=== PATIENT | male | born 1940 | race Caucasian/White ===

== ENCOUNTER 2018-03-10 13:15 | Observation (INO) | payer MEDICARE ==
[~2018-03-10] VITALS: Ht 177.8 cm; Wt 81.6 kg
[~2018-03-10 13:15] MED LIST: AMIODARONE HCL200 MG PO; ASPIR 8181 MG PO; ASPIRIN81 MG PO; CARVEDILOL3.125 MG PO; CO Q 10 PO; DILTIAZEM 24HR240 M2 PO; ELIQUIS PO; HYDROCHLOROTH12.5 MG PO; METOPROLOL TART50 MG PO; PANTOPRAZOLE SO40 MG PO; PREDNISONE10 MG PO; PROAIR HFA INH8.5 GM INH; RAMIPRIL10 MG PO; RAMIPRIL5 MG PO; SIMVASTATIN10 MG PO; SPIRIVA18 MCG INH; SYMBICORT 16010.2 GM INH; TAZTIA XT240 MG PO; VITAMIN B1 PO
--- OUTSIDE RECORDS SUMMARY | 2018-03-10 13:18 | XMS REPORT ---
[facility] Address Unknown Phone Unavailable Care Team Providers Care Aircraft Maintenance Instructor Name Role Phone Unavailable Unavailable Problems This patient has no known problems. Allergies, Adverse Reactions, Alerts This patient has no known allergies or adverse reactions. Medications This patient has no known medications. Results Test Description Test Time Test Comments Text Results Atomic Results Result Comments CT, CHEST, WITHOUT CONTRAST 2017-08-14 12:27:00 FINAL REPORT TECHNIQUE: CT scan of the chest WITHOUT intravenous contrast. Dose modulation, iterative reconstruction, and/or weight-based adjustment of the mA/ kV was utilized to reduce the radiation dose to as low as reasonably achievable. INDICATION: 76-year-old man with lung nodule. COMPARISON: Chest CTs 07/26/2016, 08/11/2015, and 06/30/2014. FINDINGS: ABSENCE OF INTRAVENOUS CONTRAST DECREASES SENSITIVITY FOR DETECTION OF FOCAL LESIONS AND VASCULAR PATHOLOGY. LINES/TUBES: None. LUNGS AND AIRWAYS: Prior right upper lobectomy. Central airways are patent. Extensive centrilobular and paraseptal emphysematous changes. No new pulmonary lesion. Unchanged scarring in the right middle lobes, as well as in both lung bases. PLEURA: No pleural effusion or pneumothorax. Unchanged calcified and noncalcified pleural plaques. HEART AND MEDIASTINUM: The visualized thyroid gland is normal. No significant mediastinal , hilar, or axillary lymphadenopathy. The heart and pericardium are within normal limits. Atherosclerotic calcifications in the thoracic aorta and coronary arteries. SOFT TISSUES AND BONES: Degenerative changes of the visualized spine. Unchanged chronic posttraumatic deformities of right-sided ribs. UPPER ABDOMEN: Unchanged subcentimeter hypodensities in the visualized liver, too small to characterize. No adrenal nodules. IMPRESSION:No suspicious abnormalities in the chest. Extensive emphysema. Signed: Jose Ashley MDReport Verified Date/Time: 08/14/2017 12:27:25 Reading Location: [facility] C0[facility] CT Body Reading Room
--- OUTSIDE RECORDS SUMMARY | 2018-03-10 13:18 | XMS REPORT | Clinical Summary ---
Author Author [facility] Address Unknown Phone Unavailable Care Team Providers Care Annealer Helper Name Role Phone PCP Unavailable Allergies No Known Allergies Current Medications Not on file Active Problems Not on file Encounters Date Type Specialty Care Team Description 08/14/2017 Procedure visit Radiology Tobias Smallwood Lung nodule MD Angelica 08/11/2017 Outside Orders Central Scheduling Tobias Smallwood Lung nodule (Primary Dx) MD Angelica after 03/09/2017 Social History Tobacco Use Types Packs/Day Years Used Date Never Assessed Sex Assigned at Date Recorded Not on file Last Filed Vital Signs Not on file Plan of Treatment Health Maintenance Due Date Last Done Comments INFLUENZA VACCINE 08/13/2018 Results * CT chest without IV contrast (08/14/2017 10:15 AM) Specimen Performing Laboratory [employer] Narrative FINAL REPORT TECHNIQUE: CT scan of the chest WITHOUT intravenous contrast. Dose modulation, iterative reconstruction, and/or weight-based adjustment of the mA/kV was utilized to reduce the radiation dose [...] visualized thyroid gland is normal. No significant mediastinal, hilar, or axillary lymphadenopathy. The heart and pericardium are within normal limits. Atherosclerotic calcifications in the thoracic aorta and coronary arteries. SOFT TISSUES AND BONES: Degenerative changes of the visualized spine. Unchanged chronic posttraumatic deformities of right-sided ribs. UPPER ABDOMEN: Unchanged subcentimeter hypodensities in the visualized liver, too small to characterize. No adrenal nodules. IMPRESSION: No suspicious abnormalities in the chest. Extensive emphysema. Signed: Evy Ashley MD Report Verified Date/Time:08/14/2017 12:27:25 Reading Location: [facility] C013Y CT Body Reading Room Procedure Note Interface, External Ris In - 08/14/2017 12:29 PM CDT FINAL REPORT TECHNIQUE: CT scan of the chest WITHOUT intravenous contrast. Dose modulation, iterative reconstruction, and/or weight-based adjustment of the mA/kV was utilized to reduce the radiation dose [...] visualized thyroid gland is normal. No significant mediastinal, hilar, or axillary lymphadenopathy. The heart and pericardium are within normal limits. Atherosclerotic calcifications in the thoracic aorta and coronary arteries. SOFT TISSUES AND BONES: Degenerative changes of the visualized spine. Unchanged chronic posttraumatic deformities of right-sided ribs. UPPER ABDOMEN: Unchanged subcentimeter hypodensities in the visualized liver, too small to characterize. No adrenal nodules. IMPRESSION: No suspicious abnormalities in the chest. Extensive emphysema. Signed: Evy Ashley MD Report Verified Date/Time: 08/14/2017 12:27:25 Reading Location: [facility] B1 C013Y CT Body Reading Room after 03/09/2017
--- OUTSIDE RECORDS SUMMARY | 2018-03-10 13:18 | XMS REPORT | Clinical Summary ---
Author Author [facility] Address Unknown Phone Unavailable Care Team Providers Care Screw Machine Operator Name Role Phone Vera You MD PCP Allergies No Known Allergies Current Medications Prescription Sig. Disp. Refills Start End Date Status Date PROAIR RESPICLICK 90 INL TWO PUFFS PO Q 4 H 6 07/22/20 Active mcg/actuation aerosol PRN 16 powdr breath activated pantoprazole (PROTONIX) TK 1 T PO BID 5 07/03/20 Active 40 MG EC tablet 16 SPIRIVA WITH HANDIHALER 07/22/20 Active 18 mcg per inhalation 16 capsule aspirin (ECOTRIN) 81 MG Take 81 mg by mouth Active enteric coated tablet daily. SYMBICORT 160-4.5 Inhale 2 puffs 2 (two) 11 01/19/20 Active mcg/actuation inhaler times a day. 17 amIODarone (PACERONE) 200 Take 1 tablet by mouth 3 04/14/20 Active MG tablet daily. 17 metoprolol succinate XL Take 1 tablet by mouth 2 3 04/14/20 Active (TOPROL-XL) 50 mg 24 hr (two) times a day. 17 tablet hydroCHLOROthiazide Take 1 tablet (12.5 mg 30 tablet 11 05/11/20 Active (HYDRODIURIL) 12.5 MG total) by mouth daily. 17 18 tablet ELIQUIS 2.5 mg tablet TK 1 T PO BID 3 11/20/19 Active 18 furosemide (LASIX) 40 mg Take 1 every other daily 16 tablet 3 Active tabletIndications: Pedal orally 18 edema, Left leg cellulitis, Shortness of breath ramipril (ALTACE) 10 MG TAKE 1 CAPSULE BY MOUTH 90 capsule 3 02/12/20 Active capsuleIndications: DAILY 18 Essential hypertension carvedilol (COREG) 3.125 Take 1 tablet (3.125 mg 180 tablet 3 04/19/20 Discontin MG tabletIndications: total) by mouth 2 (two) 17 17 ued Essential hypertension times a day with meals. diltiazem CD (CardIZEM Take 1 capsule (240 mg 90 capsule 3 02/07/20 04/19/20 Discontin CD) 240 MG 24 hr total) by mouth daily. 17 17 ued capsuleIndications: Essential hypertension ramipril (ALTACE) 10 MG Take 1 capsule (10 mg 90 capsule 3 02/07/20 02/11/20 Discontin capsuleIndications: total) by mouth daily. 17 18 ued Essential hypertension simvastatin (ZOCOR) 10 MG Take 1 tablet (10 mg 90 tablet 3 02/07/20 04/19/20 Discontin tabletIndications: Pure total) by mouth nightly. 17 17 ued hypercholesterolemia furosemide (LASIX) 20 mg Take 1 tablet (20 mg 14 tablet 0 04/05/20 04/19/20 Discontin tabletIndications: total) by mouth daily for 17 17 ued Bilateral edema of lower 14 days. extremity potassium chloride Take 1 tablet (10 mEq 14 tablet 0 04/05/20 Discontin (K-DUR) 10 MEQ CR total) by mouth daily for 17 17 ued tabletIndications: 14 days. Bilateral edema of lower extremity doxycycline (VIBRA-TABS) Take 1 tablet (100 mg 14 tablet 0 04/05/20 04/19/20 Discontin 100 MG tabletIndications: total) by mouth daily for 17 17 ued Bilateral edema of lower 14 days. extremity metOLazone (ZAROXOLYN) Take 1 tablet by mouth 2 1 04/07/20 05/10/20 Discontin 2.5 MG tablet (two) times a week. 17 17 ued ELIQUIS 5 mg tablet Take 1 tablet by mouth 04/17/20 12/12/19 Discontin daily. 17 18 ued losartan (COZAAR) 100 MG Take 1 tablet by mouth 3 04/14/20 05/25/20 Discontin tablet daily. 17 17 ued predniSONE (DELTASONE) 10 0 05/01/20 12/27/19 Discontin mg tablet 17 18 ued doxycycline (VIBRAMYCIN) Take 1 capsule (100 mg 10 capsule 0 06/24/20 06/24/20 Discontin 100 MG capsule total) by mouth daily for 17 17 ued 10 days. doxycycline (VIBRAMYCIN) Take 1 capsule (100 mg 10 capsule 0 06/24/20 07/04/20 100 MG capsule total) by mouth daily for 17 17 10 days. predniSONE (DELTASONE) 20 0 11/11/20 12/27/19 Discontin mg tablet 17 18 ued furosemide (LASIX) 40 mg Take 1 tablet (40 mg 30 tablet 0 12/12/19 02/04/20 Discontin tabletIndications: Pedal total) by mouth daily. 18 18 ued edema, Left leg cellulitis, Shortness of breath potassium chloride Take 1 tablet (10 mEq 30 tablet 0 12/12/19 Discontin (K-DUR,KLOR-CON) 10 MEQ total) by mouth daily. 18 18 ued CR tabletIndications: Pedal edema, Left leg cellulitis, Shortness of breath doxycycline (VIBRAMYCIN) Take 1 capsule (100 mg 28 capsule 1 12/12/19 12/27/19 Discontin 100 MG total) by mouth 2 (two) 18 18 ued capsuleIndications: Left times a day for 14 days. leg cellulitis Active Problems Problem Noted Date Chronic obstructive pulmonary disease with acute exacerbation 12/12/2017 Overview: Dr Salinas Shortness of breath 04/17/2017 Overview: 04/[address] Wilder Anemia, normocytic normochromic 02/08/2017 Overview: 01/2017 iron studies wnl Imbalance 09/07/2016 Overview: Right cerebellar cva, right thalamic cva chronic 08/2016 GERD (gastroesophageal reflux disease) 09/06/2016 Malignant neoplasm of upper lobe of right lung 09/06/2016 Overview: Removed nonsmall cell cancer 01/2010 taken out for cure. Essential hypertension 09/06/2016 Chronic renal insufficiency, stage I 09/06/2016 Overview: 08/2016 creatinine 1.5, 06/2014 was 1.6 Encounters Date Type Specialty Care Team Description 03/10/2018 Telephone Internal Medicine Whitney You MD 03/09/2018 Office Visit Internal Medicine Whitney You MD Essential hypertension (Primary Dx); Chronic seasonal allergic rhinitis due to pollen; Chronic renal impairment, stage 3 (moderate); Anemia, normocytic normochromic; Pedal edema 02/10/2018 Refill Internal Medicine Whitney You MD Essential hypertension 02/10/2018 Refill Internal Medicine Whitney You MD Essential hypertension 02/03/2018 Orders Only Internal Medicine Whitney You MD Pedal edema; Left leg cellulitis; Shortness of breath 02/01/2018 Office Visit Internal Medicine Whitney You MD Chronic renal impairment, stage 3 (moderate) (Primary Dx); Anemia, normocytic normochromic; Other constipation; Pedal edema 12/27/2017 Office Visit Internal Medicine Whitney You MD Anemia, normocytic normochromic (Primary Dx); Renal insufficiency; Pedal edema; Bilateral lower leg cellulitis; Essential hypertension 12/13/2017 Telephone Internal Medicine Whitney You MD 12/12/2017 Office Visit Internal Medicine Whitney You MD Pedal edema (Primary Dx); Left leg cellulitis; Shortness of breath; Essential hypertension 11/14/2017 Telephone Internal Medicine Sara Silva ND 09/06/2017 Telephone Internal Medicine Whitney You MD 08/15/2017 Office Visit Internal Medicine Whitney You MD Renal insufficiency (Primary Dx); Leg swelling; Shortness of breath; Essential hypertension 06/24/2017 Orders Only Internal Whitney Potts MD 06/24/2017 Orders Only Internal Whitney Potts MD 05/25/2017 Office Visit Internal Whitney Potts MD CRI (chronic renal insufficiency), stage 2 (mild) (Primary Dx); Essential hypertension; Anemia, normocytic normochromic 05/25/2017 Telephone Internal Whitney Potts MD 05/11/2017 Telephone Internal Whitney Potts MD 05/10/2017 Office Visit Internal Medicine Whitney You MD CRI (chronic renal insufficiency), stage 3 (moderate) (Primary Dx); Essential hypertension; Leg edema, left; Anemia in other chronic diseases classified elsewhere; Papule of skin 04/25/2017 Telephone Internal Whitney Potts MD 04/24/2017 Telephone Internal Medicine Whitney You MD 04/19/2017 Office Visit Internal Medicine Whitney You MD Bilateral edema of lower extremity (Primary Dx); Essential hypertension; Chronic renal insufficiency, stage I; Seasonal allergic rhinitis due to pollen 04/06/2017 Telephone Internal Medicine Whitney You MD Pedal edema (Primary Dx) 04/05/2017 Office Visit Internal Medicine Whitney You MD Heart palpitations (Primary Dx); Bilateral edema of lower extremity; Shortness of breath; Cellulitis of leg, left; Anemia, normocytic normochromic; CRI (chronic renal insufficiency), stage 2 (mild) after 03/09/2017 Family History Medical History Relation Name Comments Heart disease Brother Hyperlipidemia Brother Hypertension Brother Heart disease Father Hypertension Father No Known Problems Maternal Grandfather No Known Problems Maternal Grandmother Cancer Mother Colon No Known Problems Paternal Grandfather No Known Problems Paternal Grandmother Hodgkin's lymphoma Sister No Known Problems Sister Relation Name Status Comments Brother Alive Father Maternal Grandfather Maternal Grandmother Mother Paternal Grandfather Paternal Grandmother Sister Sister Alive Sister Alive Social History Tobacco Use Types Packs/Day Years Used Date Heavy Tobacco Smoker Cigarettes 0.5 Smokeless Tobacco: Never Used Tobacco Cessation: Ready to Quit: No; Counseling Given: Yes Comments: not ready to quit Alcohol Use Drinks/Week oz/Week Comments No Sex Assigned at Date Recorded Not on file Last Filed Vital Signs Vital Sign Reading Time Taken Blood Pressure 110/50 03/09/2018 10:33 AM CDT Pulse 70 03/09/2018 9:52 AM CDT Temperature 36.4 C (97.6 F) 12/12/2017 11:44 AM 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 Respiratory Rate 20 12/12/2017 11:44 AM 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 Oxygen Saturation 96% 03/09/2018 9:52 AM CDT Inhaled Oxygen - - Concentration Weight 80.7 kg (178 lb) 03/09/2018 9:52 AM CDT Height 177.8 cm (5' 10") 03/09/2018 9:52 AM CDT Body Mass Index 25.54 03/09/2018 9:52 AM CDT Plan of Treatment Health Maintenance Due Date Last Done Comments SHINGRIX VACCINE (#1) 1990 ZOSTER VACCINE 2000 PNEUMOCOCCAL 2005 POLYSACCHARIDE VACCINE AGE 65 AND OVER PNEUMOCOCCAL-13 2005 INFLUENZA VACCINE 06/13/2018 Results * CBC with platelet and differential (03/09/2018 10:47 AM) Only the most recent of 5 results within the time period is included. Component Value Ref Range WBC 5.8 3.8 - 10.8 Thousand/uL RBC 3.25 (L) 4.20 - 5.80 Million/uL HGB 7.3 (L) 13.2 - 17.1 g/dL HCT 25.1 (L) 38.5 - 50.0 % MCV 77.2 (L) 80.0 - 100.0 fL MCH 22.5 (L) 27.0 - 33.0 pg MCHC 29.1 (L) 32.0 - 36.0 g/dL RDW 14.7 11.0 - 15.0 % Platelet count 288 140 - 400 Thousand/uL MPV 10.6 7.5 - 12.5 fL Neutrophils, absolute 3,457 1,500 - 7,800 cells/uL Lymphocytes, absolute 1,206 850 - 3,900 cells/uL Monocytes, absolute 818 200 - 950 cells/uL Eosinophils, absolute 278 15 - 500 cells/uL Basophils, absolute 41 0 - 200 cells/uL Neutrophils 59.6 % Lymphocytes 20.8 % Monocytes 14.1 % Eosinophils 4.8 % Basophils + RC 0.7 % Specimen Performing Laboratory [facility] * Basic metabolic panel (03/09/2018 10:47 AM) Only the most recent of 7 results within the time period is included. Component Value Ref Range Glucose 89 65 - 99 mg/dL Comment: Fasting reference interval BUN, whole blood 53 (H) 7 - 25 mg/dL Creatinine 3.04 (H) 0.70 - 1.18 mg/dL Comment: For patients >49 years of age, the reference limit for Creatinine is approximately 13% higher for people identified as -Lebanese. EGFR Non-Afr. Lebanese 19 (L) > OR=60 mL/min/1.73m2 EGFR 22 (L) > OR=60 mL/min/1.73m2 BUN/creatinine ratio 17 6 - 22 (calc) Sodium 140 135 - 146 mmol/L Potassium 4.8 3.5 - 5.3 mmol/L Chloride 98 98 - 110 mmol/L CO2 34 (H) 20 - 31 mmol/L Calcium 9.3 8.6 - 10.3 mg/dL Specimen Performing Laboratory [facility] * IRON, TIBC AND FERRITIN PANEL (12/12/2017 12:35 PM) Component Value Ref Range Iron level 54 50 - 180 mcg/dL Iron binding capacity 279 250 - 425 mcg/dL (calc) Iron saturation 19 15 - 60 % (calc) Ferritin level 66 20 - 380 ng/mL Specimen Performing Laboratory [facility] Narrative FASTING:NO FASTING: NO * Manual differential (12/12/2017 12:35 PM) Component Value Ref Range Neutrophils, absolute 7,673 1,500 - 7,800 cells/uL Bands absolute 865 (H) 0 - 750 cells/uL Metamyelocytes absolute 93 (H) 0 cells/uL Myelocytes absolute count 93 (H) 0 cells/uL Promyelocytes absolute 195 (H) 0 cells/uL count Lymphocytes, absolute 186 (L) 850 - 3,900 cells/uL Monocytes, absolute 195 (L) 200 - 950 cells/uL Eosinophils, absolute 0 (L) 15 - 500 cells/uL Basophils, absolute 0 0 - 200 cells/uL Neutrophils 82.5 % Band neutrophils 9.3 % Metamyelocytes 1.0 (H) % Myelocytes 1.0 (H) % Promyelocytes 2.1 (H) % Lymphocytes 2.0 % Monocytes 2.1 % Eosinophils 0 % Basophils + RC 0 % Note: Comment: Although an "automated CBC" was ordered, our instrumentation detected an abnormality on your patient's specimen requiring us to perform a manual review. Specimen Performing Laboratory [facility] Narrative FASTING:NO FASTING: NO * B natriuretic peptide (12/12/2017 12:35 PM) Only the most recent of 2 results within the time period is included. Component Value Ref Range BNP 238 (H) <100 pg/mL Comment: BNP levels increase with age in the general population with the highest values seen in individuals greater than 75 years of age. Reference: J. Am. Audie. Cardiol. 2002; 40:976-982. Specimen Performing Laboratory [facility] Narrative FASTING:NO FASTING: NO * Comprehensive metabolic panel (12/12/2017 12:35 PM) Component Value Ref Range Glucose 149 (H) 65 - 99 mg/dL Comment: Fasting reference interval For someone without known diabetes, a glucose value >125 mg/dL indicates that they may have diabetes and this should be confirmed with a follow-up test. BUN, whole blood 41 (H) 7 - 25 mg/dL Creatinine 1.78 (H) 0.70 - 1.18 mg/dL Comment: For patients >49 years of age, the reference limit for Creatinine is approximately 13% higher for people identified as -Lebanese. EGFR Non-Afr. Lebanese 36 (L) > OR=60 mL/min/1.73m2 EGFR 42 (L) > OR=60 mL/min/1.73m2 BUN/creatinine ratio 23 (H) 6 - 22 (calc) Sodium 141 135 - 146 mmol/L Potassium 4.7 3.5 - 5.3 mmol/L Chloride 98 98 - 110 mmol/L CO2 36 (H) 20 - 31 mmol/L Calcium 9.0 8.6 - 10.3 mg/dL Protein 6.1 6.1 - 8.1 g/dL Albumin, S 3.7 3.6 - 5.1 g/dL Globulin, total 2.4 1.9 - 3.7 g/dL (calc) Albumin/globulin ratio 1.5 1.0 - 2.5 (calc) Total bilirubin 0.4 0.2 - 1.2 mg/dL Alkaline phosphatase 106 40 - 115 U/L AST 13 10 - 35 U/L ALT 13 9 - 46 U/L Specimen Performing Laboratory [facility] Narrative FASTING:NO FASTING: NO * D-dimer (04/05/2017 2:45 PM) Component Value Ref Range D-dimer 1.38 (H) <0.50 mcg/mL FEU Comment: The D-Dimer test is used frequently to exclude an acute PE or DVT. In patients with a low to moderate clinical risk assessment and a D-Dimer result <0.50 mcg/mL FEU, the likelihood of a PE or DVT is very low. However, a thromboembolic event should not be excluded solely on the basis of the D-Dimer level. Increased levels of D-Dimer are associated with a PE, DVT, DIC, malignancies, inflammation, sepsis, surgery, trauma, , and advancing patient age. [Carlyle 2006 11:295(2):199-207] For additional information, please refer to: http://education.wireWAX/faq/SJF970 (This link is being provided for informational/ educational purposes only) Specimen Performing Laboratory [facility] * ECG 12 lead (04/05/2017 2:03 PM) Component Value Ref Range Ventricular rate 86 Atrial rate 86 UT interval 154 QRSD interval 140 QT interval 414 QTC interval 495 P axis 1 34 QRS axis 1 43 T wave axis 59 EKG impression Sinus rhythm with premature supraventricular complexes and with frequent premature ventricular complexes-Right bundle branch block-Septal infarct , age undetermined-Abnormal ECG-- Specimen Performing Laboratory [facility] [address] [place] [address] after 03/09/2017 Insurance Payer Benefit Subscriber ID Type Phone Address Plan / Group MEDICARE MEDICARE xxxxxxxxxx Medicare [place], [place] PART A AND B AARP AARP xxxxxxxxxxx Commercial SUPPLEMENT
[2018-03-10] MEDS ORDERED: ASPIRIN 81 MG CHEW TAB PO ONE (13:30)
[2018-03-10] MEDS ORDERED: ASPIRIN 81 MG CHEW TAB PO PRN (13:45)
[2018-03-10] MEDS ORDERED: FUROSEMIDE40 MG PO (14:31)
[2018-03-10] MEDS ORDERED: SPIRIVA18 MCG INH (14:31)
[2018-03-10 15:11] LABS: BASOPHILS # (AUTO) 0.1 (0.0-0.1); BASOPHILS % 0.9 % (0.0-1.0); EOSINOPHILS # (AUTO) 0.4 (0.0-0.4); EOSINOPHILS % 6.9 % (0.0-6.0); HEMATOCRIT 24.9 % (38.2-49.6); LYMPHOCYTES # (AUTO) 1.3 (1.0-3.2); LYMPHOCYTES % 23.3 % (18.0-39.1); MEAN CORPUSCULAR HEMOGLOBIN 23.6 pg (28-32); MEAN CORPUSCULAR HGB CONC 29.7 g/dL (31-35); MEAN CORPUSCULAR VOLUME 79.6 fL (81-99); MONOCYTES # (AUTO) 0.7 (0.2-0.8); MONOCYTES % 11.8 % (4.4-11.3); NEUTROPHILS # (AUTO) 3.1 (2.1-6.9); NEUTROPHILS % 56.7 % (38.7-80.0); PLATELET COUNT 284 x10e3/uL (140-360); RED BLOOD COUNT 3.13 x10e6/uL (4.3-5.7); RED CELL DISTRIBUTION WIDTH 15.6 % (11.7-14.4)
[2018-03-10 15:14] LABS: INR 1.09; PROTHROMBIN TIME 13.3 seconds (11.9-14.5)
[2018-03-10 15:15] LABS: PARTIAL THROMBOPLASTIN TIME 27.3 seconds (23.8-35.5)
[2018-03-10 15:19] LABS: HEMOGLOBIN 7.4 g/dL (14.0-18.0)
[2018-03-10 15:21] LABS: ALBUMIN 3.5 g/dL (3.5-5.0); ANION GAP 17.2 mmol/L (8-16); CALCIUM 9.1 mg/dL (8.4-10.2); CREATININE, SERUM 2.8 mg/dL (0.72-1.25); POTASSIUM 5.2 mmol/L (3.5-5.1)
[2018-03-10 15:28] LABS: CREATINE KINASE MB 4.4 ng/mL (0-5.0)
[2018-03-10] MEDS ORDERED: ALBUTEROL SULF 0.083% NEB SOLN 3 ML NEB NEB STA (16:33)
[2018-03-10] MEDS ORDERED: FUROSEMIDE INJ 10 MG/ML 2 ML VIAL IV SCH (16:45)
[2018-03-10] MEDS ORDERED: SODIUM CHLORIDE 0.9% 250ML 250 ML IV ONE (16:45)
[2018-03-10] MEDS ORDERED: IPRATROPIUM BROMIDE 0.02% 2.5 ML NEB NEB ONE (16:45)
[2018-03-10] MEDS ORDERED: ALBUTEROL SULF 0.083% NEB SOLN 3 ML NEB NEB ONE (17:15)
--- NOTE | 2018-03-10 17:19 | Diagnostic Imaging Report ---
EXAMINATION: Chest, CHEST SINGLE (PORTABLE) INDICATION: Chest pain COMPARISON: Chest 2 views 08/27/2014 FINDINGS: LINES: None. Heart: Normal cardiac silhouette. Vascular: The pulmonary vasculature is within normal limits. Atherosclerotic calcifications of the aortic arch. Mediastinum: Density is present in the right hilum. Lungs: No parenchymal mass. No focal consolidation. Pleura: No pleural effusion. No pneumothorax. Bones: No acute osseous abnormality. Degenerative changes of the thoracic spine. Soft tissues: Normal. Impression: Density in the right hilum may represent lymphadenopathy. CT of the chest with contrast may provide additional information for further characterization. Signed by: Dr. Jose Guadalupe Candelario M.D. on 03/10/2018 5:16 PM
[2018-03-10] MEDS ORDERED: ONDANSETRON HCL 4 MG ORAL DISINTEGRATING TAB PO PRN (18:00)
[2018-03-10] MEDS ORDERED: MORPHINE SULFATE 2 MG/ML SYR IV PRN (18:00)
[2018-03-10] MEDS ORDERED: ACETAMINOPHEN 325 MG TAB PO PRN (18:00)
[2018-03-10 18:26] LABS: CLARITY,URINE CLEAR (CLEAR); COLOR,URINE YELLOW (YELLOW); KETONES,URINE NEGATIVE (NEGATIVE); LEUKOCYTE ESTERASE ,URINE NEGATIVE (NEGATIVE); NITRITE,URINE NEGATIVE (NEGATIVE); PROTEIN,URINE DIPSTICK NEGATIVE (NEGATIVE)
[2018-03-10 18:27] LABS: BACTERIA,URINE FEW /HPF; BILIRUBIN,URINE NEGATIVE (NEGATIVE); EPITHELIAL CELLS,URINE FEW /LPF; URINE UROBILINOGEN 0.2 mg/dL (0.2 - 1); WBC,URINE (MAN) 0-5 /HPF (0-5)
--- OUTSIDE RECORDS SUMMARY | 2018-03-10 18:40 | XMS REPORT | Clinical Summary ---
Author Author [facility]SS[email or web address] Address Unknown Phone Unavailable Care Team Providers Care Hardware Developer Name Role Phone PCP Unavailable Allergies No [...] contrast (08/14/2017 10:15 AM) Specimen Performing Laboratory [employer] Narrative FINAL REPORT TECHNIQUE: CT scan of [...] MD Report Verified Date/Time:08/14/2017 12:27:25 Reading Location: [facility] C013Y CT Body Reading Room Procedure Note [...] Report Verified Date/Time: 08/14/2017 12:27:25 Reading Location: [facility] B1 C013Y CT Body Reading Room after 03/09/2017
--- OUTSIDE RECORDS SUMMARY | 2018-03-10 18:40 | XMS REPORT | Clinical Summary ---
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 EGFR Non-Afr. Kosovan 19 (L) > OR=60 mL/min/1.73m2 EGFR 22 [...] approximately 13% higher for people identified as -Kosovan. EGFR Non-Afr. Kosovan 36 (L) > OR=60 mL/min/1.73m2 EGFR 42 [...] 11:295(2):199-207] For additional information, please refer to: http://education.OctaneNation/faq/MLA204 (This link is being provided for informational/ educational purposes only) Specimen Performing Laboratory [facility] * ECG 12 lead (04/05/2017 2:03 PM) Component Value Ref Range Ventricular rate 86 Atrial rate 86 SD interval 154 QRSD interval 140 QT interval 414 QTC interval 495 P axis 1 34 QRS axis 1 43 T wave axis 59 EKG impression Sinus rhythm with premature supraventricular complexes and with frequent premature ventricular complexes-Right bundle branch block-Septal infarct , age undetermined-Abnormal ECG-- Specimen Performing Laboratory [facility] [address] [place] [address] after 03/09/2017 Insurance Payer Benefit Subscriber ID Type Phone Address Plan / Group MEDICARE MEDICARE xxxxxxxxxx Medicare [place], [place] PART A [place] B AARP AARP xxxxxxxxxxx Commercial SUPPLEMENT
[2018-03-10] MEDS: ALBUTEROL SULF 0.083% NEB SOLN 3 ML NEB NEB SCH ×2 (20:15→22:50)
[2018-03-10] MEDS: IPRATROPIUM BROMIDE 0.02% 2.5 ML NEB NEB SCH ×2 (20:15→22:50)
[2018-03-10 21:10] VITALS: BP 200/80
[2018-03-10 22:39] VITALS: BP 157/69
[2018-03-10 22:50] VITALS: BP 146/63
[2018-03-10 22:58] VITALS: BP 146/63
[2018-03-11] VITALS: BP 157/70
[2018-03-11] MEDS: IPRATROPIUM BROMIDE 0.02% 2.5 ML NEB NEB SCH ×4 (03:00→15:00)
[2018-03-11] MEDS: ALBUTEROL SULF 0.083% NEB SOLN 3 ML NEB NEB SCH ×4 (03:00→15:00)
[2018-03-11 05:00] VITALS: BP 154/77
[2018-03-11] MEDS ORDERED: TIOTROPIUM 18 MCG INH POWDER INH SCH (06:00)
[2018-03-11 08:11] VITALS: BP 144/67
[2018-03-11] MEDS ORDERED: FUROSEMIDE 40 MG TAB PO SCH (09:00)
[2018-03-11] MEDS ORDERED: ASPIRIN 81 MG CHEW TAB PO SCH (09:00)
[2018-03-11] MEDS: BUDESONIDE/FORMOTEROL 160/4.5MCG INHALER INH SCH ×2 (09:00→16:09)
[2018-03-11] MEDS ORDERED: AMIODARONE HCL 200 MG TAB PO SCH (09:00)
[2018-03-11] MEDS: METOPROLOL TARTRATE 50 MG TAB PO SCH ×2 (09:22→16:09)
[2018-03-11 10:22] LABS: BASOPHILS % 0.8 % (0.0-1.0); EOSINOPHILS # (AUTO) 0.3 (0.0-0.4); EOSINOPHILS % 5.4 % (0.0-6.0); HEMATOCRIT 27.1 % (38.2-49.6); HEMOGLOBIN 8.3 g/dL (14.0-18.0); LYMPHOCYTES # (AUTO) 0.8 (1.0-3.2); LYMPHOCYTES % 15.4 % (18.0-39.1); MEAN CORPUSCULAR HEMOGLOBIN 24.6 pg (28-32); MEAN CORPUSCULAR HGB CONC 30.6 g/dL (31-35); MEAN CORPUSCULAR VOLUME 80.4 fL (81-99); MONOCYTES # (AUTO) 0.6 (0.2-0.8); MONOCYTES % 11.2 % (4.4-11.3); NEUTROPHILS # (AUTO) 3.5 (2.1-6.9); NEUTROPHILS % 66.8 % (38.7-80.0); PLATELET COUNT 238 x10e3/uL (140-360); RED BLOOD COUNT 3.37 x10e6/uL (4.3-5.7); RED CELL DISTRIBUTION WIDTH 15.1 % (11.7-14.4)
[2018-03-11 10:56] LABS: ALBUMIN 3.2 g/dL (3.5-5.0); ALBUMIN/GLOBULIN RATIO 1.1 (0.8-2.0); ANION GAP 13.1 mmol/L (8-16); CREATININE, SERUM 2.21 mg/dL (0.72-1.25); POTASSIUM 4.1 mmol/L (3.5-5.1)
[2018-03-11 11:02] LABS: CREATINE KINASE MB 4.4 ng/mL (0-5.0)
[2018-03-11] MEDS ORDERED: SODIUM CHLORIDE 0.9% 250ML 250 ML IV ONE (12:00)
--- NOTE | 2018-03-11 12:23 | History and Physical ---
ADDENDUM: The patient also has atrial fibrillation and he is on Eliquis and amiodarone. Job#: [id number] ARLYN
--- NOTE | 2018-03-11 15:59 | History and Physical ---
PRIMARY CARE PHYSICIAN: Dr. Arriola. CHIEF COMPLAINT: Low blood count. HISTORY OF PRESENT ILLNESS: A 77-year-old man with a history of right lung cancer in 2010, status post partial right lobectomy, now developing anemia, and sent to the hospital by his doctor. Here he was found to have a hemoglobin of 7.4. He has been started on 2 units of packed red blood cells transfusion. The patient also has a history of congestive heart failure, started on Lasix. He has been told in the past that he has some renal dysfunction and recommended to see a post graduate intern, but did not. Now, his GFR is 22. He is admitted for further evaluation and management. PAST MEDICAL HISTORY: Right lung cancer in 2011, status post partial lobectomy, TIA, hypertension, , peripheral edema, congestive heart failure, acute kidney injury/chronic kidney disease stage unknown and COPD. PAST SURGICAL HISTORY: Partial right lobectomy in 2010. ALLERGIES: PER ELECTRONIC MEDICAL RECORDS. FAMILY, SOCIAL HISTORY: The patient is . He has no children. No alcohol or illicits. He quit cigarettes 4 months ago. He was smoking 1/4 pack a day at that time. MEDICATIONS: Per electronic medical records. REVIEW OF SYSTEMS: Denies any dizziness, chest pain. PHYSICAL EXAMINATION VITAL SIGNS: Reviewed. GENERAL APPEARANCE: A tired-appearing man resting in the bed. HEENT: Anicteric. Pupils responsive to light. No oral lesions. CARDIOVASCULAR: Normal S1 and S2. Regular rate and rhythm. No murmurs audible. No chest wall tenderness. LUNGS: Scattered wheeze and reduced breath sounds throughout. ABDOMEN: Soft and nontender. EXTREMITIES: There is no edema or calf tenderness. NEUROLOGIC: Alert and oriented x3. Moving all extremities. SKIN: Dry. PSYCHIATRIC: Flat affect. LABS: Reviewed. MEDICATIONS: Reviewed. ASSESSMENT AND PLAN: A 77-year-old man. 1. Microcytic anemia. Two units of packed red blood cells transfused. We will follow up hemoglobin and hematocrit. 2. Acute kidney injury/chronic kidney disease stage 4, possibly, unknown. He has been recommended to see a post graduate intern in the past, but has refused. The patient is now requesting to go home. He has agreed to follow up with nephrology as an outpatient. I will discontinue his Lasix at this time. 3. Hyperkalemia. We will retest and reassess. 4. Hypertension. Continue home medication. 5. Right hilar abnormality in the setting of history of right lung cancer in 2011. He states he gets surveillance CAT scans every year. I recommended for him to have a CAT scan this week as the patient has refused to stay in the hospital and wants to go home. 6. Prophylaxis: Use SCDs and proton pump inhibitor. DISPOSITION: Possibly home today, as the patient has agreed to follow up with a CAT scan later this week and follow up with nephrology, Dr. Suero, as an outpatient. Will recheck his potassium now. Will recheck his renal function prior to discharge and make a final determination on further discussion with the patient. Job#: [id number] GH
[2018-03-11] MEDS ORDERED: PANTOPRAZOLE SOD 40 MG TABEC PO SCH (16:30)
[2018-03-11] MEDS ORDERED: FUROSEMIDE INJ 10 MG/ML 2 ML VIAL IV ONE (17:00)
[2018-03-11 18:38] LABS: HEMATOCRIT 31.8 % (38.2-49.6); HEMOGLOBIN 9.8 g/dL (14.0-18.0)
[2018-03-11 19:09] LABS: ANION GAP 16.1 mmol/L (8-16); CALCIUM 9.2 mg/dL (8.4-10.2); CREATININE, SERUM 2.22 mg/dL (0.72-1.25); POTASSIUM 4.1 mmol/L (3.5-5.1)
[2018-03-11 19:15] VITALS: BP 153/70
[2018-03-12] MEDS ORDERED: SIMVASTATIN 20 MG TAB PO SCH (21:00)
== END 2018-03-11 20:15 | disposition home or self-care (01) ==
LOC: ER 13:15 → ERHOLD 18:38 → IMCU 20:38
PROVIDERS: ADMIT Internal Medicine; ATTEND Internal Medicine
PROC: 30233N1 Transfusion of Nonautologous Red Blood Cells into Peripheral Vein, Percutaneous Approach (ICD-10-PCS; principal; 2018-03-10)
DX: D50.8 Other iron deficiency anemias (principal); N17.9 Acute kidney failure, unspecified; E87.5 Hyperkalemia; I10 Essential (primary) hypertension; Z85.118 Personal history of other malignant neoplasm of bronchus and lung; Z87.891 Personal history of nicotine dependence; N18.9 Chronic kidney disease, unspecified; I50.9 Heart failure, unspecified; I48.91 Unspecified atrial fibrillation; Z79.01 Long term (current) use of anticoagulants
CPT/HCPCS: 36430; P9016; 36415; 71045; 80048; 80053; 81001; 82550; 82553; 84484; 85014; 85018; 85025; 85610; 85730; 86850; 86900; 86920; 93005; 94640; 99284; G0378; J1940; J7050

== ENCOUNTER 2018-10-27 17:04 | Observation (INO) | payer MEDICARE ==
[~2018-10-27] VITALS: Ht 179.1 cm; Wt 85.0 kg
[~2018-10-27 17:04] MED LIST changes: +FUROSEMIDE40 MG PO
--- OUTSIDE RECORDS SUMMARY | 2018-10-27 17:09 | XMS REPORT ---
Author Author Meghan Christianson Organization [employer] Address Unknown Phone Unavailable Care Team Providers Care Regional Clinical Research Associate Name Role Phone Meghan Christianson CP Unavailable Encounters Encounter Location Date Unknown Meghan [place] Sep 03, 2014 Unknown Meghan [place] Sep 05, 2014 [place] Meghan [place] Sep 05, 2014 Problems Problem Type Condition ICD-9 Code Onset Dates Condition Status Problem Pure hypercholesterolemia 272.0 Active Problem Unspecified transient cerebral ischemia 435.9 Active Problem Benign hypertensive heart disease without heart failure 402.10 Active Problem 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 frequency:every day Aug 14, 2014 Exercise: no. Aug 14, 2014 Smoking: yes. Are you a: Current smoker Aug 14, 2014 Alcohol: no. None Aug 14, 2014 Summary Purpose eClinicalWorks Submission
--- OUTSIDE RECORDS SUMMARY | 2018-10-27 17:09 | XMS REPORT | Clinical Summary ---
Author Author [employer] [facility] Organization [facility] Address Unknown Phone Unavailable Care Team Providers Care Perforator Typist Name Role Phone Whitney You MD PCP Allergies No Known Allergies Medications End Date Status Medication Sig Dispensed Refills Start Date Active PROAIR RESPICLICK 90 INL TWO PUFFS 6 mcg/actuation aerosol PO Q 4 H PRN 6 powdr breath activated Active pantoprazole (PROTONIX) TK 1 T PO BID 5 40 MG EC tablet 6 Active SPIRIVA WITH HANDIHALER 0 18 mcg per inhalation 6 capsule Active aspirin (ECOTRIN) 81 MG Take 81 mg by 0 enteric coated tablet mouth daily. Active SYMBICORT 160-4.5 Inhale 2 11 mcg/actuation inhaler puffs 2 (two) 7 times a day. Active amIODarone (PACERONE) 200 Take 1 tablet 3 MG tablet by mouth 7 daily. Active metoprolol succinate XL Take 1 tablet 3 (TOPROL-XL) 50 mg 24 hr by mouth 2 7 tablet (two) times a day. Active ELIQUIS 2.5 mg tablet TK 1 T PO BID 3 8 Active ramipril (ALTACE) 10 MG TAKE 1 90 capsule 3 capsuleIndications: CAPSULE BY 8 Essential hypertension MOUTH DAILY Active furosemide (LASIX) 40 mg Take 1 every 16 tablet 3 tabletIndications: Pedal other daily 8 edema, Left leg orally cellulitis, Shortness of breath Active AURYXIA 210 mg iron TK 1 T PO 5 tablet TID 8 02/10/2018 Discontinued ramipril (ALTACE) 10 MG Take 1 90 capsule 3 capsuleIndications: capsule (10 7 Essential hypertension mg total) by mouth daily. 12/12/2017 Discontinued ELIQUIS 5 mg tablet Take 1 tablet 0 by mouth 7 daily. 12/27/2017 Discontinued predniSONE (DELTASONE) 10 0 mg tablet 7 05/11/2018 hydroCHLOROthiazide Take 1 tablet 30 tablet 11 (HYDRODIURIL) 12.5 MG (12.5 mg 7 tablet total) by mouth daily. 12/27/2017 Discontinued predniSONE (DELTASONE) 20 0 mg tablet 7 02/03/2018 Discontinued furosemide (LASIX) 40 mg Take 1 tablet 30 tablet 0 tabletIndications: Pedal (40 mg total) 8 edema, Left leg by mouth cellulitis, Shortness of daily. breath 02/03/2018 Discontinued potassium chloride Take 1 tablet 30 tablet 0 (K-DUR,KLOR-CON) 10 MEQ (10 mEq 8 CR tabletIndications: total) by Pedal edema, Left leg mouth daily. cellulitis, Shortness of breath 12/27/2017 Discontinued doxycycline (VIBRAMYCIN) Take 1 28 capsule 1 100 MG capsule (100 8 capsuleIndications: Left mg total) by leg cellulitis mouth 2 (two) times a day for 14 days. 06/03/2018 Discontinued furosemide (LASIX) 40 mg Take 1 every 16 tablet 3 tabletIndications: Pedal other daily 8 edema, Left leg orally cellulitis, Shortness of breath 06/08/2018 Discontinued furosemide (LASIX) 40 mg TAKE 1 TABLET 16 tablet 0 tabletIndications: Pedal BY MOUTH 8 edema, Left leg EVERY OTHER cellulitis, Shortness of DAY breath 07/24/2018 doxycycline (VIBRAMYCIN) Take 1 14 capsule 0 100 MG capsule capsule (100 8 mg total) by mouth 2 (two) times a day for 7 days. Active Problems Problem Noted Date Chronic obstructive [...] taken out for cure. Essential hypertension 09/06/2016 CRI (chronic renal insufficiency), stage 4 (severe) 09/06/2016 Overview: 08/2016 creatinine 1.5, 06/2014 was 1.6 03/2018 Dr Hernandez Encounters Care Team Description Date Type Specialty Whitney You MD CRI (chronic renal insufficiency), stage 4 (severe) (HCC) (Primary Dx); Chronic obstructive pulmonary disease with acute exacerbation (HCC); Essential hypertension; Anemia, normocytic normochromic; Diarrhea, unspecified type 10/25/2018 Office Visit Internal Medicine Whitney You MD 09/26/2018 Patient Quality Outreach Joan Ferrer 09/26/2018 Patient Quality Outreach Whitney You MD 07/17/2018 Orders Only Internal Medicine Whitney You MD Essential hypertension (Primary Dx); CRI (chronic renal insufficiency), stage 4 (severe); Pedal edema; CRI (chronic renal insufficiency), stage 2 (mild); Anemia, normocytic normochromic 07/13/2018 Office Visit Internal Medicine Whitney You MD Needs flu shot (Primary Dx); Essential hypertension; CRI (chronic renal insufficiency), stage 4 (severe); Anemia, normocytic normochromic 06/08/2018 Office Visit Internal Whitney Potts MD 06/04/2018 Telephone Internal Medicine Whitney You MD Pedal edema; Left leg cellulitis; Shortness of breath 06/03/2018 Refill Internal Medicine Whitney You MD Pedal edema; Left leg cellulitis; Shortness of breath 06/03/2018 Refill Internal Whitney Potts MD 03/18/2018 Telephone Internal Whitney Potts MD 03/16/2018 Telephone Internal Whitney Potts MD 03/10/2018 Telephone Internal Medicine Whitney You MD Essential hypertension (Primary Dx); Chronic seasonal allergic rhinitis due to pollen; Chronic renal impairment, stage 3 (moderate); Anemia, normocytic normochromic; Pedal edema 03/09/2018 Office Visit Internal Medicine Whitney You MD Essential hypertension 02/10/2018 Refill Internal Medicine Whitney You MD Essential hypertension 02/10/2018 Refill Internal Medicine Whitney You MD Pedal edema; Left leg cellulitis; Shortness of breath 02/03/2018 Orders Only Internal Medicine Whitney You MD Chronic renal impairment, stage 3 (moderate) (Primary Dx); Anemia, normocytic normochromic; Other constipation; Pedal edema 02/01/2018 Office Visit Internal Medicine Whitney You MD Anemia, normocytic normochromic (Primary Dx); Renal insufficiency; Pedal edema; Bilateral lower leg cellulitis; Essential hypertension 12/27/2017 Office Visit Internal Medicine Whitney You MD 12/13/2017 Telephone Internal Medicine Whitney You MD Pedal edema (Primary Dx); Left leg cellulitis; Shortness of breath; Essential hypertension 12/12/2017 Office Visit Internal Medicine Sara Silva [place] 11/14/2017 Telephone Internal Medicine after 10/26/2017 Immunizations Name Dates Previously Given Next Due FLUZONE HIGH-DOSE PF 06/08/2017 (Deferred: Patient Refused) Family History Medical History Relation Name Comments [...] Sister Sister Alive Sister Alive Social History Date Tobacco Use Types Packs/Day Years Used Current Every Day Smoker Cigarettes 0.25 Smokeless Tobacco: Never Used Tobacco Cessation: Ready to Quit: No; Counseling Given: Yes Comments: not ready to quit Alcohol Use Drinks/Week oz/Week Comments No Sex Assigned at Date Recorded Not on file Industry Job Start Date Occupation Not on file Not on file Not on file Travel End Travel History Travel Start No recent travel history available. Last Filed Vital Signs Time Taken Vital Sign Reading 10/25/2018 11:45 AM [facility] Blood Pressure 144/71 10/25/2018 11:45 AM [facility] Pulse 77 10/25/2018 11:45 AM [facility] Temperature 36.9 C (98.5 F) 12/12/2017 11:44 AM [facility] Respiratory Rate 20 10/25/2018 11:45 AM [facility] Oxygen Saturation 92% - Inhaled Oxygen - Concentration 07/13/2018 9:58 AM CDT Weight 89.4 kg (197 lb) 10/25/2018 11:45 AM [facility] Height 177.8 cm (5' 10") 07/13/2018 9:58 AM CDT Body Mass Index 28.27 Plan of Treatment Care Team Description Date Type Specialty Whitney You MD [address] [facility] [address] [facility] [place] [address] 02/07/2019 Office Visit Internal Medicine Health Maintenance Due Date Last Done Comments SHINGLES VACCINES (1 of 1990 2) PNEUMOCOCCAL 2005 POLYSACCHARIDE VACCINE AGE 65 AND OVER PNEUMOCOCCAL-13 2005 INFLUENZA VACCINE 06/13/2018 Procedures Comments Procedure Name Priority Date/Time Associated Diagnosis COMPREHENSIVE METABOLIC Routine 10/25/2018 CRI (chronic renal PANEL 12:27 PM [facility] insufficiency), stage 4 (severe) (HCC) Essential hypertension CBC WITH PLATELET AND Routine 10/25/2018 Anemia, normocytic DIFFERENTIAL 12:27 PM [facility] normochromic CBC WITH PLATELET AND Routine 07/13/2018 Anemia, normocytic DIFFERENTIAL 10:36 AM CDT normochromic BASIC METABOLIC PANEL Routine 07/13/2018 CRI (chronic renal 10:36 AM CDT insufficiency), stage 2 (mild) BASIC METABOLIC PANEL Routine 06/08/2018 Essential hypertension 12:03 PM CDT CRI (chronic renal insufficiency), stage 4 (severe) CBC WITH PLATELET AND Routine 06/08/2018 Anemia, normocytic DIFFERENTIAL 12:03 PM CDT normochromic BASIC METABOLIC PANEL Routine 03/09/2018 Essential hypertension 10:47 AM CDT Chronic renal impairment, stage 3 (moderate) CBC WITH PLATELET AND Routine 03/09/2018 Anemia, normocytic DIFFERENTIAL 10:47 AM CDT normochromic BASIC METABOLIC PANEL Routine 12/27/2017 Renal insufficiency 1:59 PM [facility] CBC WITH PLATELET AND Routine 12/27/2017 Anemia, normocytic DIFFERENTIAL 1:59 PM [facility] normochromic IRON, TIBC AND FERRITIN Routine 12/12/2017 PANEL 12:35 PM [facility] MANUAL DIFFERENTIAL Routine 12/12/2017 12:35 PM [facility] COMPREHENSIVE METABOLIC Routine 12/12/2017 Pedal edema PANEL 12:35 PM [facility] Essential hypertension B NATRIURETIC PEPTIDE Routine 12/12/2017 Shortness of breath 12:35 PM [facility] CBC WITH PLATELET AND Routine 12/12/2017 Left leg cellulitis DIFFERENTIAL 12:35 PM [facility] Shortness of breath after 10/26/2017 Results * CBC with platelet and differential (10/25/2018 12:27 PM [facility]) Only the most recent of 6 results within the time period is included. WBC 8.3 3.8 - 10.8 Thousand/uL [facility] [place] RBC 3.03 (L) 4.20 - 5.80 Million/uL [facility] [place] HGB 7.5 (L) 13.2 - 17.1 g/dL [facility] [place] HCT 25.3 (L) 38.5 - 50.0 % [facility] [place] MCV 83.5 80.0 - 100.0 fL [facility] [place] MCH 24.8 (L) 27.0 - 33.0 pg [facility] [place] MCHC 29.6 (L) 32.0 - 36.0 g/dL [facility] [place] RDW 14.4 11.0 - 15.0 % [facility] [place] Platelet count 340 140 - 400 Thousand/uL [facility] [place] MPV 10.3 7.5 - 12.5 fL [facility] [place] Neutrophils, absolute 7,146 1,500 - 7,800 cells/uL [facility] [place] Lymphocytes, absolute 905 850 - 3,900 cells/uL [facility] [place] Monocytes, absolute 224 200 - 950 cells/uL [facility] [place] Eosinophils, absolute 8 (L) 15 - 500 cells/uL [facility] [place] Basophils, absolute 17 0 - 200 cells/uL [facility] Neutrophils 86.1 % [facility] Lymphocytes 10.9 % [facility] Monocytes 2.7 % [facility] Eosinophils 0.1 % [facility] Basophils + RC 0.2 % [facility] Specimen Blood Resulting Agency Comment Performing Organization Information: Site ID: [id number] Name: [facility] Address: [address] [place] [id number] Director: Marilu Snider Performing Organization Address City/State/Zipcode Phone Number LASHONDA [facility] [place] [address] [place] [address] * Comprehensive metabolic panel (10/25/2018 12:27 PM [facility]) Only the most recent of 2 results within the time period is included. Glucose 126 (H) 65 - 99 mg/dL [facility] [facility] Comment: [place] Fasting reference interval For someone without known diabetes, a glucose value >125 mg/dL indicates that they may have diabetes and this should be confirmed with a follow-up test. BUN, whole blood 43 (H) 7 - 25 mg/dL [facility] Creatinine 1.81 (H) 0.70 - 1.18 mg/dL [facility] [facility] Comment: [place] For patients >49 years of age, the reference limit for Creatinine is approximately 13% higher for people identified as -Scottish. EGFR Non-Afr. [place] 35 (L) > OR=60 mL/min/1.73m2 [employer] [facility] EGFR 41 (L) > OR=60 mL/min/1.73m2 [employer] [facility] BUN/creatinine ratio 24 (H) 6 - 22 (calc) [facility] [place] Sodium 142 135 - 146 mmol/L [facility] [place] Potassium 5.0 3.5 - 5.3 mmol/L [facility] [place] Chloride 101 98 - 110 mmol/L [facility] [place] CO2 34 (H) 20 - 32 mmol/L [facility] [place] Calcium 8.7 8.6 - 10.3 mg/dL [facility] [place] Protein 5.9 (L) 6.1 - 8.1 g/dL [facility] [place] Albumin, S 3.8 3.6 - 5.1 g/dL [facility] [place] Globulin, total 2.1 1.9 - 3.7 g/dL (calc) [facility] [place] Albumin/globulin ratio 1.8 1.0 - 2.5 (calc) [facility] Total bilirubin 0.2 0.2 - 1.2 mg/dL [facility] Alkaline phosphatase 67 40 - 115 U/L [facility] AST 14 10 - 35 U/L [facility] [place] ALT 12 9 - 46 U/L [facility] [place] Specimen Blood Resulting Agency Comment Performing Organization Information: Site ID: [id number] Name: [facility] Lab Address: [address] [place] [id number] Director: Marilu Snider Performing Organization Address City/State/Zipcode Phone Number [facility] [address] [place] [phone] * Basic metabolic panel (07/13/2018 10:36 AM CDT) Only the most recent of 4 results within the time period is included. Glucose 115 (H) 65 - 99 mg/dL [employer] [facility] Comment: [place] Fasting reference interval For someone without known diabetes, a glucose value between 100 and 125 mg/dL is consistent with prediabetes and should be confirmed with a follow-up test. BUN, whole blood 35 (H) 7 - 25 mg/dL [facility] Creatinine 1.46 (H) 0.70 - 1.18 mg/dL [employer] [facility] Comment: [place] For patients >49 years of age, the reference limit for Creatinine is approximately 13% higher for people identified as -Scottish. EGFR Non-Afr. [place] 46 (L) > OR=60 mL/min/1.73m2 [facility] EGFR 53 (L) > OR=60 mL/min/1.73m2 [facility] BUN/creatinine ratio 24 (H) 6 - 22 (calc) [facility] Sodium 142 135 - 146 mmol/L [facility] [place] Potassium 5.0 3.5 - 5.3 mmol/L [employer] [facility] [place] Chloride 98 98 - 110 mmol/L [employer] [place] CO2 37 (H) 20 - 32 mmol/L [employer] [facility] [place] Calcium 9.4 8.6 - 10.3 mg/dL [facility] [place] Specimen Blood Resulting Agency Comment Performing Organization Information: Site ID: [id number] Name: [facility] Address: [address] [place] [phone] Director: Marilu Snider Performing Organization Address City/State/[facility] Phone Number [employer] [place] [address] [place] [phone] * IRON, TIBC AND FERRITIN PANEL (12/12/2017 12:35 PM [facility]) Iron level 54 50 - 180 mcg/dL [facility] Iron binding capacity 279 250 - 425 mcg/dL (calc) [facility] [place] Iron saturation 19 15 - 60 % (calc) [facility] [place] Ferritin level 66 20 - 380 ng/mL [facility] [place] Narrative Performed At FASTING:NO [facility] FASTING: NO Resulting Agency Comment Performing Organization Information: Site ID: [id number] Name: [facility] Address: [address] [place] [id number] Director: Marilu Snider MD Performing Organization Address [facility] Centercone Phone Number [employer] [place] [address] [place] [phone] * Manual differential (12/12/2017 12:35 PM [facility]) Neutrophils, absolute 7,673 1,500 - 7,800 cells/uL [facility] [place] Bands absolute 865 (H) 0 - 750 cells/uL [facility] [place] Metamyelocytes absolute 93 (H) 0 cells/uL [facility] [place] Myelocytes absolute count 93 (H) 0 cells/uL [facility] [place] Promyelocytes absolute 195 (H) 0 cells/uL [facility] Lymphocytes, absolute 186 (L) 850 - 3,900 cells/uL [facility] [place] Monocytes, absolute 195 (L) 200 - 950 cells/uL [facility] [place] Eosinophils, absolute 0 (L) 15 - 500 cells/uL [facility] [place] Basophils, absolute 0 0 - 200 cells/uL [facility] [place] Neutrophils 82.5 % [facility] [place] Band neutrophils 9.3 % [facility] [place] Metamyelocytes 1.0 (H) % [facility] [place] Myelocytes 1.0 (H) % [facility] [place] Promyelocytes 2.1 (H) % [facility] [place] Lymphocytes 2.0 % [facility] [place] Monocytes 2.1 % [facility] [place] Eosinophils 0 % [facility] [place] Basophils + RC 0 % [facility] [place] Note: Comment: [facility] Although an "automated CBC" [place] was ordered, our instrumentation detected an abnormality on your patient's specimen requiring us to perform a manual review. Narrative Performed At FASTING:NO [facility] FASTING: NO Resulting Agency Comment Performing Organization Information: Site ID: [id number] Name: [facility] Address: [address] [place] [phone] Director: Marilu Snider MD Performing Organization Address City/[facility] Centercode Phone Number [employer] [place] [address] [place] [address] * B natriuretic peptide (12/12/2017 12:35 PM [facility]) BNP 238 (H) <100 pg/mL [employer] [facility] Comment: [place] BNP levels increase with age in the general population with the highest values seen in individuals greater than 75 years of age. Reference: J. Am. Audie. Cardiol. 2002; 40:976-982. Specimen Blood Narrative Performed At FASTING:NO [facility] FASTING: NO Resulting Agency Comment Performing Organization Information: Site ID: [id number] Name: [facility] Address: [address] [place] [phone] Director: Marilu Snider MD Performing Organization Address [facility] Centercode Phone Number [employer] [address] [address] after 10/26/2017 Insurance Payer Benefit Subscriber ID Type Phone Address Plan / Group MEDICARE MEDICARE xxxxxxxxxxx Medicare [place], [place] PART A AND B AARP AARP xxxxxxxxxxx Commercial SUPPLEMENT Advance Directives Patient has advance care planning documents on file. For more information, janneth bush contact: Saul Arango [address] [place] [address]
--- OUTSIDE RECORDS SUMMARY | 2018-10-27 17:09 | XMS REPORT ---
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 frequency:every day Aug 14, 2014 Exercise: no. Aug 14, 2014 Smoking: yes. Are you a: Current smoker Aug 14, 2014 Alcohol: no. None Aug 14, 2014 Summary Purpose [employer] Submission
--- OUTSIDE RECORDS SUMMARY | 2018-10-27 17:09 | XMS REPORT ---
Author Author Meghan Christianson Organization [employer] Address Unknown Phone Unavailable Care Team Providers Care Clinical Application Manager Name Role Phone Meghan Christianson CP Unavailable Allergies, Adverse Reactions, Alerts Substance Reaction Event Type N.K.D.A. 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 Active Assessment Shortness of breath 786.05 Active Assessment Other symptoms involving cardiovascular system 785.9 Active Problem Pure hypercholesterolemia 272.0 Active Problem Unspecified transient cerebral ischemia 435.9 Active Problem Benign hypertensive heart disease without heart failure 402.10 Active Assessment Palpitations 785.1 Active Assessment Right bundle branch block 426.4 Active Problem 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 [address]-51 3.125 MG Orally Twice a day Active 1 tablet with food Simvastatin [facility] [address]-46 10 Milligram Active TAKE 1 TABLET BY MOUTH EVERY EVENING Ramipril [facility] [id number] 10 Active TAKE 1 CAPSULE ONCE A DAY ORALLY Diltiazem HCl Coated Beads Unknown 0 240 MG Orally Once a day Active 1 capsule Diltiazem HCl [facility] [id number] 240 mg Active TAKE ONE CAPSULE BY MOUTH DAILY Carvedilol [facility] [address]-92 3.125 Milligram Active TAKE 1 TABLET BY MOUTH TWICE DAILY WITH FOOD Social History Social History Element Qualifiers Date Reported Caffeine: yes. frequency:every day Aug 14, 2014 Exercise: no. Aug 14, 2014 Smoking: yes. Are you a: Current smoker Aug 14, 2014 Alcohol: no. None Aug 14, 2014 Vital Signs Date/Time: June 10, 2014 Weight 175 lbs Cardiac Monitoring Heart Rate 82 /min Blood Pressure Diastolic 62 mm Hg Blood Pressure Systolic 130 mm Hg Summary Purpose [employer] Submission
--- OUTSIDE RECORDS SUMMARY | 2018-10-27 17:09 | XMS REPORT | Continuity of Care Document ---
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 12/17/2016 Ahmed Ahmed Shortness of breath Active Diagnosis 12/17/2016 Ahmed Ahmed Other symptoms involving cardiovascular system Active Diagnosis 12/17/2016 Ahmed Ahmed Palpitations Active Diagnosis 12/17/2016 Ahmed Ahmed Right bundle branch block Active Diagnosis 12/17/2016 Ahmed Ahmed Precordial pain Active Diagnosis 12/17/2016 Ahmed Ahmed Anemia Active Problem 03/12/2018 [facility] CHF Active Problem 03/12/2018 [facility] COPD Active Problem 03/12/2018 [facility] Renal insufficiency Active Problem 03/12/2018 [facility] Medications Medication Details Route Status Patient Instructions Ordering Provider Order Date Source Furosemide 40 Mg Tablet, 40 Mg Oral Daily Active 03/11/2018 [facility] Hydrochlorothiazide 12.5 Mg Tablet, 1 Tab Oral Daily Active 03/11/2018 [facility] Aspirin (Aspir 81) 81 Mg Tablet., 1 Tab Oral Daily Active 03/10/2018 [facility] Carvedilol 3.125 Mg Tablet, 3.1285 Mg Oral Daily Active 03/10/2018 [facility] Diltiazem Hcl (Taztia Xt) 240 Mg Capsule.er, 240 Mg Oral Daily Active 03/10/2018 [facility] Pantoprazole Sodium (Protonix) 40 Mg Tablet., 40 Mg Oral Daily Active 03/10/2018 [facility] Prednisone 10 Mg Tab, 10 Mg Oral Daily Active 03/10/2018 [facility] Ramipril 10 Mg Capsule, 10 Mg Oral Daily Active 03/10/2018 [facility] Ramipril 5 Mg Capsule, 10 Mg Oral Daily Active 03/10/2018 [facility] Tiotropium [place] (Spiriva) 18 Mcg Cap.w.dev, 18 Mcg Inhalation Active 03/10/2018 [facility] Ramipril 1 capsule Orally Active 10 mg Orally Once a day [facility] 09/05/2014 [facility] Simvastatin 1 tablet in the evening Orally Active 10 MG Orally Once a day [facility] 09/05/2014 [facility] Diltiazem Hcl (Diltiazem 24HR Er) 240 Mg Tab.er.24h, 240 Mg Oral Daily Active 08/27/2014 [facility] Diltiazem HCl ER Beads 1 capsule Orally Active 240 MG Orally Once a day [facility] Carvedilol 1 tablet with food Orally Active 3.125 MG Orally Twice a day [facility] Simvastatin TAKE 1 TABLET BY MOUTH EVERY EVENING NA Active 10 Milligram [facility] Ramipril TAKE 1 CAPSULE ONCE A DAY ORALLY NA Active 10 [facility] Diltiazem HCl Coated Beads 1 capsule Orally Active 240 MG Orally Once a day [facility] Diltiazem HCl ER Beads TAKE ONE CAPSULE BY MOUTH DAILY NA Active 240 mg [facility] Albuterol Sulfate (Proair Hfa Inhaler*) 8.5 Gm Inh Every 4 Hours as needed for Shortness Of Breath Active [facility] Amiodarone Hcl 200 Mg Tablet Daily Active [facility] Aspirin 81 Mg Tab.chew Daily Active [facility] Budesonide/Formoterol Fumarate (Symbicort 160-4.5 Mcg Inhaler) 10.2 Gm Hfa.aer.ad Twice A Day Active [facility] Co Q 10 Daily Active [facility] Eliquis Twice A Day Active [facility] Metoprolol Tartrate 50 Mg Tablet Twice A Day Active [facility] Pantoprazole Sodium (Protonix) 40 Mg Tablet. Twice A Day Active [facility] Simvastatin 10 Mg Tablet Daily Active [facility] Tiotropium [place] (Spiriva) 18 Mcg Cap.w.dev Daily Active [facility] Vitamin B1 Daily Active [facility] Allergies, Adverse Reactions, Alerts Substance Category Reaction Severity Reaction type Status Date Reported Comments Source N.K.D.A. Adverse Reaction Info Not Available Adverse Reaction Active 06/10/2014 Ahmed Ahmed Immunizations Immunization Date Given Site Status Last Updated Comments Source Results Order Name Results Value Reference Range Date Interpretation Comments Source Automated blood hematocrit (volume fraction) Automated blood hematocrit (volume fraction) 31.8 38.2 - 49.6 03/11/2018 [facility] Blood hemoglobin measurement (moles/volume) Blood hemoglobin measurement (moles/volume) 9.8 14.0 - 18.0 03/11/2018 [facility] Estimated glomerular filtration rate (GFR) determination Estimated glomerular filtration rate (GFR) determination 29 60 03/11/2018 [facility] Glucose measurement Glucose measurement 105 74 - 118 03/11/2018 [facility] Serum or plasma anion gap Serum or plasma anion gap 16.1 8 - 16 03/11/2018 [facility] Serum or plasma calcium measurement (mass/volume) Serum or plasma calcium measurement (mass/volume) 9.2 8.4 - 10.2 03/11/2018 [facility] Serum or plasma carbon dioxide, total measurement (moles/volume) Serum or plasma carbon dioxide, total measurement (moles/volume) 33 22 - 29 03/11/2018 [facility] Serum or plasma chloride measurement (moles/volume) Serum or plasma chloride measurement (moles/volume) 96 98 - 107 03/11/2018 [facility] Serum or plasma creatine kinase MB measurement (mass/volume) Serum or plasma creatine kinase MB measurement (mass/volume) 5.00 0 - 5.0 03/11/2018 [facility] Serum or plasma creatine kinase measurement (enzymatic activity/volume) Serum or plasma creatine kinase measurement (enzymatic activity/volume) 217 30 - 200 03/11/2018 [facility] Serum or plasma creatinine measurement (mass/volume) Serum or plasma creatinine measurement (mass/volume) 2.22 0.72 - 1.25 03/11/2018 [facility] Serum or plasma potassium measurement (moles/volume) Serum or plasma potassium measurement (moles/volume) 4.1 3.5 - 5.1 03/11/2018 [facility] Serum or plasma sodium measurement (moles/volume) Serum or plasma sodium measurement (moles/volume) 141 136 - 145 03/11/2018 [facility] Serum or plasma urea nitrogen measurement (mass/volume) Serum or plasma urea nitrogen measurement (mass/volume) 40 7 - 26 03/11/2018 [facility] Serum or plasma urea nitrogen/creatinine mass ratio Serum or plasma urea nitrogen/creatinine mass ratio 18 6 - 25 03/11/2018 [facility] Troponin I measurement by highly sensitive enzyme immunoassay Troponin I measurement by highly sensitive enzyme immunoassay 0.026 0 - 0.300 03/11/2018 [facility] Automated blood basophil count (count/volume) Automated blood basophil count (count/volume) 0.0 0.0 - 0.1 03/11/2018 [facility] Automated blood basophil count as percentage of total leukocytes Automated blood basophil count as percentage of total leukocytes 0.8 0.0 - 1.0 03/11/2018 [facility] Automated blood eosinophil count Automated blood eosinophil count 0.3 0.0 - 0.4 03/11/2018 [facility] Automated blood eosinophil count as percentage of total leukocytes Automated blood eosinophil count as percentage of total leukocytes 5.4 0.0 - 6.0 03/11/2018 [facility] Automated blood lymphocyte count as percentage ot total leukocytes Automated blood lymphocyte count as percentage ot total leukocytes 15.4 18.0 - 39.1 03/11/2018 [facility] Automated blood monocyte count as percentage of total leukocytes Automated blood monocyte count as percentage of total leukocytes 11.2 4.4 - 11.3 03/11/2018 [facility] Automated blood neutrophil count Automated blood neutrophil count 3.5 2.1 - 6.9 03/11/2018 [facility] Automated blood platelet count (count/volume) Automated blood platelet count (count/volume) 238 140 - 360 03/11/2018 [facility] Automated blood segmented neutrophil count as percentage of total leukocytes Automated blood segmented neutrophil count as percentage of total leukocytes 66.8 38.7 - 80.0 03/11/2018 [facility] Automated erythrocyte mean corpuscular hemoglobin (mass per erythrocyte) Automated erythrocyte mean corpuscular hemoglobin (mass per erythrocyte) 24.6 28 - 32 03/11/2018 [facility] Automated erythrocyte mean corpuscular hemoglobin concentration measurement (mass/volume) Automated erythrocyte mean corpuscular hemoglobin concentration measurement (mass/volume) 30.6 31 - 35 03/11/2018 [facility] Automated erythrocyte mean corpuscular volume Automated erythrocyte mean corpuscular volume 80.4 81 - 99 03/11/2018 [facility] Blood erythrocytes automated count (number/volume) Blood erythrocytes automated count (number/volume) 3.37 4.3 - 5.7 03/11/2018 [facility] Blood leukocytes automated count (number/volume) Blood leukocytes automated count (number/volume) 5.18 4.8 - 10.8 03/11/2018 [facility] Blood lymphocytes count (number/volume) Blood lymphocytes count (number/volume) 0.8 1.0 - 3.2 03/11/2018 [facility] Blood monocytes automated count (number/volume) Blood monocytes automated count (number/volume) 0.6 0.2 - 0.8 03/11/2018 [facility] Plasma globulin measurement (mass/volume) Plasma globulin measurement (mass/volume) 2.9 2.3 - 3.5 03/11/2018 [facility] Serum or plasma alanine aminotransferase measurement (enzymatic activity/volume) Serum or plasma alanine aminotransferase measurement (enzymatic activity/volume) 15 0 - 55 03/11/2018 [facility] Serum or plasma albumin measurement (mass/volume) Serum or plasma albumin measurement (mass/volume) 3.2 3.5 - 5.0 03/11/2018 [facility] Serum or plasma albumin/globulin mass ratio Serum or plasma albumin/globulin mass ratio 1.1 0.8 - 2.0 03/11/2018 [facility] Serum or plasma alkaline phosphatase measurement (enzymatic activity/volume) Serum or plasma alkaline phosphatase measurement (enzymatic activity/volume) 79 40 - 150 03/11/2018 [facility] Serum or plasma protein measurement (mass/volume) Serum or plasma protein measurement (mass/volume) 6.1 6.5 - 8.1 03/11/2018 [facility] Serum or plasma total bilirubin measurement (mass/volume) Serum or plasma total bilirubin measurement (mass/volume) 1.0 0.2 - 1.2 03/11/2018 [facility] Red Cell Distribution Width 15.1 11.7 - 14.4 03/11/2018 [facility] IM GRANULOCYTES % 0.4 0.0 - 1.0 03/11/2018 [facility] Absolute Immature Granulocyte (auto 0.02 0 - 0.1 03/11/2018 [facility] Aspartate Amino Transf (AST/SGOT) 19 5 - 34 03/11/2018 [facility] Automated urine sediment leukocyte count by microscopy (number/high power field) Automated urine sediment leukocyte count by microscopy (number/high power field) null 0 - 5 03/10/2018 [facility] Bacteria detection in urine sediment by light microscopy Bacteria detection in urine sediment by light microscopy FEW NONE 03/10/2018 [facility] Epithelial cells detection in urine sediment by light microscopy Epithelial cells detection in urine sediment by light microscopy FEW NONE 03/10/2018 [facility] Erythrocytes detection in urine sediment by light microscopy Erythrocytes detection in urine sediment by light microscopy NONE 0 - 5 03/10/2018 [facility] Specific gravity of Urine by Test strip Specific gravity of Urine by Test strip 1.015 1.010 - 1.025 03/10/2018 [facility] Urine clarity Urine clarity CLEAR CLEAR 03/10/2018 [facility] Urine color determination Urine color determination YELLOW YELLOW 03/10/2018 [facility] Urine erythrocytes detection Urine erythrocytes detection TRACE NEGATIVE 03/10/2018 [facility] Urine glucose detection Urine glucose detection NEGATIVE NEGATIVE 03/10/2018 [facility] Urine ketones detection by automated test strip Urine ketones detection by automated test strip NEGATIVE NEGATIVE 03/10/2018 [facility] Urine leukocyte esterase detection by dipstick Urine leukocyte esterase detection by dipstick NEGATIVE NEGATIVE 03/10/2018 [facility] Urine nitrite detection Urine nitrite detection NEGATIVE NEGATIVE 03/10/2018 [facility] Urine pH measurement by automated test strip Urine pH measurement by automated test strip 6 5 - 7 03/10/2018 [facility] Urine protein measurement by test strip (mass/volume) Urine protein measurement by test strip (mass/volume) NEGATIVE NEGATIVE 03/10/2018 [facility] Urine total bilirubin measurement (mass/volume) Urine total bilirubin measurement (mass/volume) NEGATIVE NEGATIVE 03/10/2018 [facility] Urine urobilinogen measurement by test strip (mass/volume) Urine urobilinogen measurement by test strip (mass/volume) 0.2 0.2 - 1 03/10/2018 [facility] Activated partial thromboplastin time (aPTT) in platelet poor plasma bycoagulation assay Activated partial thromboplastin time (aPTT) in platelet poor plasma bycoagulation assay 27.3 23.8 - 35.5 03/10/2018 [facility] INR in Platelet poor plasma by Coagulation assay INR in Platelet poor plasma by Coagulation assay 1.09 03/10/2018 [facility] Prothrombin time (PT) in platelet poor plasma by coagulation assay Prothrombin time (PT) in platelet poor plasma by coagulation assay 13.3 11.9 - 14.5 03/10/2018 [facility] Vital Signs Vital Sign Value Date Comments Source Weight 175 06/10/2014 Ahmed Ahmed Heart Rate 82 06/10/2014 Ahmed Ahmed Diastolic (mm Hg) 62 06/10/2014 Ahmed Ahmed Systolic (mm Hg) 130 06/10/2014 Ahmed Ahmed Encounters Location Location Details Encounter Type Encounter Number Reason For Visit Attending Provider ADM Date DC Date Status Source Meghan Christianson MD, [place] 4 mo f/u [id number] 06/10/2014 06/10/2014 Meghan Christianson MD, [place] Unknown [id number] 09/03/2014 09/03/2014 Meghan Christianson MD, [place] Unknown [id number] 09/03/2014 09/03/2014 Meghan Christianson MD, [place] Unknown [id number] 09/03/2014 09/03/2014 Meghan Christianson MD, [place] Unknown [id number] 09/03/2014 09/03/2014 Meghan Christianson MD, [place] Unknown [id number] 09/05/2014 09/05/2014 Meghan Christianson MD, [place] Unknown [id number] 09/05/2014 09/05/2014 Meghan Christianson MD, [place] Unknown [id number] 09/05/2014 09/05/2014 Meghan Christianson MD, [place] Unknown [id number] 09/05/2014 09/05/2014 Meghan Christianson MD, [place] Unknown [id number] 09/05/2014 09/05/2014 Meghan Christianson MD, [place] Unknown [id number] 09/05/2014 09/05/2014 Meghan Christianson MD, [place] Unknown [id number] 09/05/2014 09/05/2014 Meghan Christianson MD, [place] Unknown [id number] 09/05/2014 09/05/2014 Meghan Christianson Departed Emergency Room [id number] DRAKE VIVAS MD 09/06/2017 09/06/2017 [facility] Discharged Inpatient (obs) [id number] SIOBHAN RICH MD 03/10/2018 03/11/2018 [facility] Procedures Procedure Code Date Perfomer Comments Source
--- OUTSIDE RECORDS SUMMARY | 2018-10-27 17:09 | XMS REPORT ---
Author Author Meghan Christianson Organization [employer] Address Unknown Phone Unavailable Care Team Providers Care Personal Care Attendant Name Role Phone Meghan Christianson CP Unavailable [...] heart failure 402.10 Active Problem Atherosclerosis of [place] arteries of the extremities with intermittent claudication 440.21 Active Medications Medication Code System Code Instructions Start Date End Date Status Dosage Simvastatin [facility] [address]-52 10 MG Orally Once a day Sep 05, 2014 Active 1 tablet in the evening Social History Social History Element Qualifiers Date Reported Caffeine: yes. frequency:every day Aug 14, 2014 Exercise: no. Aug 14, 2014 Smoking: yes. Are you a: Current smoker Aug 14, 2014 Alcohol: no. None Aug 14, 2014 Summary Purpose [employer] Submission
--- OUTSIDE RECORDS SUMMARY | 2018-10-27 17:09 | XMS REPORT | Clinical Summary ---
Author Author ELYSSA [facility] Address Unknown Phone Unavailable Care Team Providers Care Elderly Caregiver Name Role Phone Whitney You MD PCP Allergies No Known Allergies Medications Not on file Active Problems Not on file Encounters Care Team Description Date Type Specialty Tobias Smallwood MD Lung nodule 05/21/2018 Hospital Radiology Encounter Tobias Smallwood MD Lung nodule (Primary Dx) 05/17/2018 Outside Orders Radiology Tobias Smallwood MD Lung nodule 04/11/2018 Hospital Radiology Encounter Tobias Smallwood MD Lung nodule (Primary Dx) 04/05/2018 Outside Orders Central Scheduling Tobias Smallwood MD Lung nodule 03/20/2018 Hospital Radiology Encounter Tobias Smallwood MD Lung nodule (Primary Dx) 03/16/2018 Outside Orders Radiology after 10/26/2017 Social History Date Tobacco Use Types Packs/Day Years Used Never Assessed Sex Assigned at Date Recorded Not on file Industry Job Start Date Occupation Not on file Not on file Not on file Travel End Travel History Travel Start No recent travel history available. Last Filed Vital Signs Not on file Plan of Treatment Health Maintenance Due Date Last Done Comments INFLUENZA VACCINE 08/13/2018 Procedures Comments Procedure Name Priority Date/Time Associated Diagnosis CT CHEST WITHOUT IV Routine 05/21/2018 CONTRAST 11:25 AM CDT POCT-CREATININE Routine 05/21/2018 11:15 AM CDT P.E.T./CT SKULL BASE TO Routine 04/11/2018 Lung nodule MID-THIGH PI 4:05 PM CDT POCT-GLUCOSE METER Routine 04/11/2018 2:[address] CHEST WITHOUT IV Routine 03/20/2018 CONTRAST 1:26 PM CDT POCT-CREATININE Routine 03/20/2018 1:03 PM CDT after 10/26/2017 Results * CT chest without IV contrast (05/21/2018 11:25 AM CDT) Only the most recent of 2 results within the time period is included. Narrative Performed At FINAL REPORT [facility] HISTORY: lung nodule COMPARISON : PET/CT from 04/11/2018, CT chest from 03/20/2018 Technique : Multiple axial images of the chest were performed from the lung apices to the lung bases without the administration of IV contrast. Images were presented in both the lung and soft tissue windows. This exam was performed according to our departmental dose optimization program which includes automated exposure control, adjustment of the mA and/or kV according to patient size and/or use of iterative reconstructive technique. Findings: A stable subcentimeter hypodense nodule is identified within the right thyroid lobe. Given small size and stability, no further evaluation is warranted. The remaining visualized structures within the base of the neck demonstrate no significant abnormalities. Extensive atherosclerotic calcifications noted within the thoracic aorta and branch vessels including the coronary arteries. There is stable ectasia the distal thoracic aorta. The heart is not enlarged. No abnormal pericardial fluid is present. There is no abnormal axillary, mediastinal, or hilar lymph node enlargement. The trachea and proximal airways are patent. Examination of the lungs demonstrates bilateral abnormal lucencies compatible with severe emphysematous changes/COPD. There are postsurgical changes from prior right upper lobectomy. There is stable atelectasis/scarring present within the right middle lobe as well as to lesser extent within the right lower lobe. The previously identified areas of nodularity within the left lung base appear appear more linear and less conspicuous on today's examination. There is no evidence for consolidation, pneumothorax, new suspicious nodule or mass, or pleural effusion. Limited views of the upper abdomen demonstrate subcentimeter hypodensities within the liver which are too small to characterize but stable from prior examinations. There is a stable mild compression deformity of the T12 vertebral body. Remote healed left-sided rib fractures and chronic deformities of posterior right fifth and sixth ribs again noted. The osseous structures otherwise demonstrate stable degenerative changes without evidence for acute fracture or destructive process. The extrathoracic soft tissues are unremarkable. Impression: 1. Previously identified areas of nodularity within the left lower lobe appear more linear and less conspicuous in today's examination. Given change in appearance and lack of significant hypermetabolic activity on the prior PET/CT examination, findings are favored to represent areas of evolving inflammation/scarring. No new nodules identified. 2. Stable postsurgical changes from prior right upper lobectomy. 3. Extensive emphysematous changes. 4. Additional stable findings as above. Signed: Jose Onofre MD Report Verified Date/Time:05/21/2018 17:06:47 Reading Location: [address] Radiology Reading Room Procedure Note Interface, External Ris In - 05/21/2018 5:08 PM CDT FINAL REPORT HISTORY: lung nodule COMPARISON : PET/CT from 04/11/2018, CT chest from 03/20/2018 Technique : Multiple axial images of the chest were performed from the lung apices to the lung bases without the administration of IV contrast. Images were presented in both the lung and soft tissue windows. This exam was performed according to our departmental dose optimization program which includes automated exposure control, adjustment of the mA and/or kV according to patient size and/or use of iterative reconstructive technique. Findings: A stable subcentimeter hypodense nodule is identified within the right thyroid lobe. Given small size and stability, no further evaluation is warranted. The remaining visualized structures within the base of the neck demonstrate no significant abnormalities. Extensive atherosclerotic calcifications noted within the thoracic aorta and branch vessels including the coronary arteries. There is stable ectasia the distal thoracic aorta. The heart is not enlarged. No abnormal pericardial fluid is present. There is no abnormal axillary, mediastinal, or hilar lymph node enlargement. The trachea and proximal airways are patent. Examination of the lungs demonstrates bilateral abnormal lucencies compatible with severe emphysematous changes/COPD. There are postsurgical changes from prior right upper lobectomy. There is stable atelectasis/scarring present within the right middle lobe as well as to lesser extent within the right lower lobe. The previously identified areas of nodularity within the left lung base appear appear more linear and less conspicuous on today's examination. There is no evidence for consolidation, pneumothorax, new suspicious nodule or mass, or pleural effusion. Limited views of the upper abdomen demonstrate subcentimeter hypodensities within the liver which are too small to characterize but stable from prior examinations. There is a stable mild compression deformity of the T12 vertebral body. Remote healed left-sided rib fractures and chronic deformities of posterior right fifth and sixth ribs again noted. The osseous structures otherwise demonstrate stable degenerative changes without evidence for acute fracture or destructive process. The extrathoracic soft tissues are unremarkable. Impression: 1. Previously identified areas of nodularity within the left lower lobe appear more linear and less conspicuous in today's examination. Given change in appearance and lack of significant hypermetabolic activity on the prior PET/CT examination, findings are favored to represent areas of evolving inflammation/scarring. No new nodules identified. 2. Stable postsurgical changes from prior right upper lobectomy. 3. Extensive emphysematous changes. 4. Additional stable findings as above. Signed: Jose Onofre MD Report Verified Date/Time: 05/21/2018 17:06:47 Reading Location: [address] Radiology Reading Room Performing Organization Address City/State/Zipcode Phone Number [facility] * POC-Creatinine (05/21/2018 11:15 AM CDT) Only the most recent of 2 results within the time period is included. POC-Creatinine 1.5 (H)Comment: TESTED AT 0.6 - 1.3 mg/dL [facility] [address] [facility] [address] POC-EGFR 45 mL/min/1.73M2 [facility] Specimen Blood Narrative Performed At Performing Organization Address City/State/Zipcode Phone Number [facility] [address] [place] [address] MED[facility] * NM PET/CT Skull Base To MidThigh Initial (04/11/2018 4:05 PM CDT) Narrative Performed At FINAL REPORT [facility] EXAMINATION: FDG-PET/CT, 04/11/2018 1:38 PM CLINICAL HISTORY: Non-small cell lung carcinoma, status post right upper lobectomy. Indeterminate nodules at the left lung base noted on CT. INDICATION: Evaluate for malignancy.FDG-PET/CT is obtained for subsequent treatment evaluation. COMPARISON: Prior chest CT studies, most recently 03/20/2018. TECHNIQUE: Radiopharmaceutical: F-18 Fluorodeoxyglucose Administered activity: 11.0] mCi Route of administration: Intravenously via the left wrist Localization time: 60 minutes Scan extent: Skull base to the proximal thighs Additional imaging: None Serum blood glucose: 104 CPT Code: 18200 FINDINGS: Head and Neck: There is no katherine hypermetabolism along the cervical chains. Tracer uptake in the head and neck mucosa is normal and symmetric. The visualized portions of the brain are normal in appearance on noncontrast CT. Chest: Both of the nodular opacities at the left lung base seen on the recent CT examination are metabolically active, but at a modest intensity level. Both of these opacities, located along the left margin of the descending aorta and along the posterior dome of the left hemidiaphragm, have an SUV of 3.4. Regions of linear scarring in the right midlung show faint but appreciable radiotracer activity. There is no katherine hypermetabolism in mediastinal, hilar, or axillary chains. There are scattered coronary arterial calcifications.. Abdomen and Pelvis: Tracer uptake in the hepatic parenchyma is homogeneous. The adrenal glands are normal in appearance on both PET and CT. FDG activity overlying the left adrenal gland on the fused images represents physiologic activity in the left diaphragmatic matthieu, with regional misregistration due to respiration. There is no katherine hypermetabolism in retroperitoneal or pelvic chains. There are scattered colonic diverticula, with no evidence of diverticulitis. The prostate gland is mildly enlarged. Musculoskeletal: There are no suspicious foci of osseous hypermetabolism. Several healing rib fractures are seen in the left hemithorax, showing low-grade radiotracer uptake. IMPRESSION: 1. The nodular opacities at the left lung base seen on the recent CT scan show intermediate-grade FDG activity. The uptake is less than would be expected for recurrent high-grade malignancy, and is more consistent with atelectasis or inflammation. Nevertheless, as these were new opacities on the recent CT examination, a follow-up CT in 2-3 months is recommended to assure resolution. 2. No evidence of recurrent or metastatic malignancy elsewhere in the body. Signed: Henrique Mcmullen MD Report Verified Date/Time:04/12/2018 10:45:08 Procedure Note Interface, External Ris In - 04/12/2018 10:47 AM CDT FINAL REPORT EXAMINATION: FDG-PET/CT, 04/11/2018 1:38 PM CLINICAL HISTORY: Non-small cell lung carcinoma, status post right upper lobectomy. Indeterminate nodules at the left lung base noted on CT. INDICATION: Evaluate for malignancy. FDG-PET/CT is obtained for subsequent treatment evaluation. COMPARISON: Prior chest CT studies, most recently 03/20/2018. TECHNIQUE: Radiopharmaceutical: F-18 Fluorodeoxyglucose Administered activity: 11.0] mCi Route of administration: Intravenously via the left wrist Localization time: 60 minutes Scan extent: Skull base to the proximal thighs Additional imaging: None Serum blood glucose: 104 CPT Code: 94563 FINDINGS: Head and Neck: There is no katherine hypermetabolism along the cervical chains. Tracer uptake in the head and neck mucosa is normal and symmetric. The visualized portions of the brain are normal in appearance on noncontrast CT. Chest: Both of the nodular opacities at the left lung base seen on the recent CT examination are metabolically active, but at a modest intensity level. Both of these opacities, located along the left margin of the descending aorta and along the posterior dome of the left hemidiaphragm, have an SUV of 3.4. Regions of linear scarring in the right midlung show faint but appreciable radiotracer activity. There is no katherine hypermetabolism in mediastinal, hilar, or axillary chains. There are scattered coronary arterial calcifications.. Abdomen and Pelvis: Tracer uptake in the hepatic parenchyma is homogeneous. The adrenal glands are normal in appearance on both PET and CT. FDG activity overlying the left adrenal gland on the fused images represents physiologic activity in the left diaphragmatic matthieu, with regional misregistration due to respiration. There is no katherine hypermetabolism in retroperitoneal or pelvic chains. There are scattered colonic diverticula, with no evidence of diverticulitis. The prostate gland is mildly enlarged. Musculoskeletal: There are no suspicious foci of osseous hypermetabolism. Several healing rib fractures are seen in the left hemithorax, showing low-grade radiotracer uptake. IMPRESSION: 1. The nodular opacities at the left lung base seen on the recent CT scan show intermediate-grade FDG activity. The uptake is less than would be expected for recurrent high-grade malignancy, and is more consistent with atelectasis or inflammation. Nevertheless, as these were new opacities on the recent CT examination, a follow-up CT in 2-3 months is recommended to assure resolution. 2. No evidence of recurrent or metastatic malignancy elsewhere in the body. Signed: Henrique Mcmullen MD Report Verified Date/Time: 04/12/2018 10:45:08 Performing Organization Address City/State/Zipcode Phone Number [facility] * POC-Glucose meter (04/11/2018 2:10 PM CDT) POC-Glucose Meter 104Comment: TESTED AT [facility] 70 - 110 mg/dL [address] Specimen Blood Performing Organization Address City/State/[place] [address] [facility] after 10/26/2017 Insurance Payer Benefit Subscriber ID Type Phone Address Plan / Group MEDICARE MEDICARE A xxxxxxxxxx Medicare B MCR SUPPLEMENT/INDIVIDUAL AARP/UNITE xxxxxxxxxxx Medigap D HEALTHCARE
--- OUTSIDE RECORDS SUMMARY | 2018-10-27 17:10 | XMS REPORT ---
Author Author [facility] Address Unknown Phone Unavailable Care Team Providers Care Developer Architect Name Role Phone NICKFLORENCIO Unavailable Unavailable SWEETNaina Unavailable Unavailable Problems This patient has no known problems. Allergies, Adverse Reactions, Alerts This patient has no known allergies or adverse reactions. Medications This patient has no known medications. Results Test Description Test Time Test Comments Text Results Atomic Results Result Comments CT, CHEST, WITHOUT CONTRAST 2018-05-21 17:06:00 FINAL REPORT HISTORY: lung nodule COMPARISON : [...] size and/or use of iterative reconstructive technique. Findings:A stable subcentimeter hypodense nodule is identified within [...] areas of evolving inflammation/scarring. No new nodules identified.2. Stable postsurgical changes from prior right upper lobectomy.3. Extensive emphysematous changes.4. Additional stable findings as above. Signed: Jose Onofre MDReport Verified Date/Time: 05/21/2018 17:06:47 Reading Location: [address] Radiology Reading Room -CREATININE 2018-05-21 11:18:00 POC-CREATININE (AYESHA) (test aibn=6655) 1.5 mg/dL 0.6-1.3 TESTED AT [place] [address] POC-EGFR (SYLVESTERAKER) (test qqcz=5439) 45 mL/min/1.73M2 PET/CT, SKULL BASE TO MID-THIGH [id number] 10:45:00Reason for Exam:->r91.1 FINAL REPORT EXAMINATION: FDG-PET/CT, 04/11/2018 1:38 PM C LINICAL HISTORY: Non-small cell lung carcinoma, status post right upper lobectom y. Indeterminate nodules at the left lung base noted on CT.INDICATION: Evaluate for malignancy. FDG-PET/CT is obtained for subsequent treatment evaluation.COMP ARISON: Prior chest CT studies, most recently 03/20/2018. TECHNIQUE:Radiopharmaceu tical: F-18 FluorodeoxyglucoseAdministered activity: 11.0] mCiRoute of administr ation: Intravenously via the left wristLocalization time: 60 minutesScan extent: Skull base to the proximal thighsAdditional imaging: NoneSerum blood glucose: 1 04CPT Code: 70602 FINDINGS:Head and Neck: There is no katherine hypermetabolism isidro g the cervical chains. Tracer uptake in the head and neck mucosa is normal and s ymmetric. The visualized portions of the brain are normal in appearance on nonco ntrast CT. Chest: Both of the nodular opacities at the left lung base seen on e recent CT examination are metabolically active, but at a modest intensity leve l. Both of these opacities, located along the left margin of the descending aort a and along the posterior dome of the left hemidiaphragm, have an SUV of 3.4. Re gions of linear scarring in the right midlung show faint but appreciable radiotr acer activity. There is no katherine hypermetabolism in mediastinal, hilar, or axill eryn chains. There are scattered coronary arterial calcifications.. Abdomen and P damien: Tracer uptake in the hepatic parenchyma is homogeneous. The adrenal gland s are normal in appearance on both PET and CT. FDG activity overlying the left a drenal gland on the fused images represents physiologic activity in the left michael phragmatic matthieu, with regional misregistration due to respiration. There is no n odal hypermetabolism in retroperitoneal or pelvic chains. There are scattered co lonic diverticula, with no evidence of diverticulitis. The prostate gland is mil dly enlarged. Musculoskeletal: There are no suspicious foci of osseous hypermeta bolism. Several healing rib fractures are seen in the left hemithorax, showing l ow-grade radiotracer uptake. IMPRESSION: 1. The nodular opacities at the left salina ng base seen on the recent CT scan show intermediate-grade FDG activity. The upt misael is less than would be expected for recurrent high-grade malignancy, and is m ore consistent with atelectasis or inflammation. Nevertheless, as these were new opacities on the recent CT examination, a follow-up CT in 2-3 months is recomme nded to assure resolution. 2. No evidence of recurrent or metastatic malignancy elsewhere in the body. Signed: Henrique Mcmullen [facility] Verified Date/Time: 10:45:08 Electronically signed by: HENRIQUE MCMULLEN MD on 04/12 10:45 AM POCT-GLUCOSE [id number] 14:12:00* Test Item Value Reference Range Comments POC-GLUCOSE METER (AYESHA) (test zicl=2797) 104 mg/dL 70-[address] [facility] [address] [facility] [address] CT, CHEST, WITHOUT [id number] 14:28:00FINAL REPORT HISTORY: LUNG NODULE COMPARISON : 08/14/2017 Technique : Multiple axial images of the [...] size and/or use of iterative reconstructive technique. Comment: In the right thyroid lobe, there is a 1.2 cm nodule/cyst. This can be better assessed with a thyroid ultrasound. There is no hilar, mediastinal or axillary lymphadenopathy. There is atheroscler otic vascular disease. There is some coronary atherosclerosis. There is stable e ctasia/aneurysmal dilatation of the distal thoracic/proximal abdominal aorta wit h the distal thoracic aorta measuring up to a maximum of 3.6 cm and the proximal abdominal aorta measuring up to a maximum of 3.3 cm. There are some too small to characterize hepatic hypodensities but which may represent cysts. The visualized portions of the spleen, adrenal glands, pancreas, and kidneys are within normal limits. There is a new age indeterminate compression deformity/fracture of the T12 vertebral body. There is a severe degree of emphysema/COPD. No pneumothorax or pleural effusion is seen. In the left lower lobe, there is a new nodular op acity measuring 2.7 x 1.8 cm. An additional nodular density is also seen in the left lung base measuring up to 1.6 x 1.8 cm. These nodular foci are nonspecific and could represent areas of focal airspace disease such as pneumonitis or aspir ation. Either close CT follow-up or correlation with a PET-CT scan is advised to exclude the possibility of neoplasm. Postsurgical changes are seen consistent w ith prior right upper lobectomy. In the distal aspect of the right trachea, ther e is a small nodular focus measuring up to 1.3 x 0.5 cm that could represent joseph e mucus material. A mass cannot be entirely excluded. The findings can be correl ated with bronchoscopy. Impression: 1. Emphysema/COPD. 2. Total 2 rounded/nodula r areas of airspace disease/densities in the left lung base. While these could r epresent areas of atelectasis, aspiration or pneumonitis, neoplasm cannot be exc luded. Either close CT follow-up or correlation with a PET-CT scan is advised. 3 . Postsurgical changes consistent with a right upper lobectomy. Signed: Naina Sinclair MDReport Verified Date/Time: 03/20/2018 14:28:38 Reading Location: [facility] Imaging Reading Room - [place] [address]120 -[id number] 13:07:00* Test Item Value Reference Range Comments POC-CREATININE (AYESHA) (test hiqh=4933) 2.0 mg/dL 0.6-1.3 TESTED AT [address] [address] POC-EGFR (SYLVESTERAKER) (test amnj=9738) 33 mL/min/1.73M2 CT, CHEST, WITHOUT [id number] 12:27:00FINAL REPORT TECHNIQUE: CT scan of the chest [...] are patent. Extensive centrilobular and paraseptal emphysematous thais nges. No new pulmonary lesion. Unchanged scarring in the right middle lobes, as well as in both lung bases. PLEURA: No pleural effusion or pneumothorax. Unchang ed calcified and noncalcified pleural plaques. HEART AND MEDIASTINUM: The visual ized thyroid gland is normal. No significant mediastinal, hilar, or axillary lym phadenopathy. The heart and pericardium are within normal limits. Atheroscleroti c calcifications in the thoracic aorta and coronary arteries. SOFT TISSUES AND B ONES: Degenerative changes of the visualized spine. Unchanged chronic posttrauma tic deformities of right-sided ribs. UPPER ABDOMEN: Unchanged subcentimeter hypo densities in the visualized liver, too small to characterize. No adrenal nodules . IMPRESSION:No suspicious abnormalities in the chest. Extensive emphysema. Sig ileana: Evy Ashley MDReport Verified Date/Time: 08/14/2017 12:27:25 Reading L ocation: [facility] B1 C013Y CT Body Reading Room T SINGLE (PORTABLE) [place] [address] Patient Name: ENRIKE UNGER MR #: [id number] : 1940 Age/Sex: 77/M Req #: [id number] Adm Physician: Ordered by: TWYLA SERRANO MD Report #: [id number] Location: ER Room/Bed: Procedure: [id number] DX/CHEST SINGLE (PORTABLE) Ex am Date: 03/10/18 Exam Time: 1654 REPORT STATUS : Signed EXAMINATION: Chest, CHEST SINGLE (PORTABLE) INDICATION: Ch est pain COMPARISON: Chest 2 views 08/27/2014 FINDINGS: LINES: None. Heart: Normal cardiac silhouette. Vascular: The pulmon eryn vasculature is within normal limits. Atherosclerotic calcifications of th e aortic arch. Mediastinum: Density is present in the right hilum. Rossy gs: No parenchymal mass. No focal consolidation. Pleura: No pleural effus ion. No pneumothorax. Bones: No acute osseous abnormality. Degenerative c hanges of the thoracic spine. Soft tissues: Normal. Impression: Density in the right hilum may represent lymphadenopathy. CT of the chest with contrast may provide additional information for further characterization. Signed by: Dr. Hilraio Chirinos M.D. on 03/10/2018 5:16 PM Dictated By: HILARIO CHIRINOS MD 15 Transcribed By: SHELLY on 03/10/181715 COPY TO: TWYLA SERRANO MD
[2018-10-27] MEDS ORDERED: SODIUM CHLORIDE 0.9% 250ML 250 ML IV ONE (17:45)
--- NOTE | 2018-10-27 18:41 | Diagnostic Imaging Report ---
EXAMINATION: CHEST SINGLE (PORTABLE) INDICATION: ^sob COMPARISON: Chest x-ray 03/10/2018. 08/27/2014. 08/27/2013. FINDINGS: AP view TUBES and LINES: None. LUNGS: Lungs are well inflated. Right hilar masslike region is again seen. Unchanged focal airspace in the right midlung. Unchanged mild airspace opacity in the left lung base. Mild central pulmonary venous congestion. PLEURA: No pleural effusion or pneumothorax. HEART AND MEDIASTINUM: The cardiomediastinal silhouette is unremarkable. There are atherosclerotic calcifications within the aorta. Mediastinal clips in the right hilar region is again seen. BONES AND SOFT TISSUES: No acute osseous lesion. Soft tissues are unremarkable. UPPER ABDOMEN: No free air under the diaphragm. IMPRESSION: 1. Unchanged right hilar mass with airspace opacities in the right midlung, suspicious for right hilar mass with postobstructive pneumonia. Recommend CT chest with contrast for the evaluation. 2. Unchanged mild left basilar atelectasis and/or consolidation. 3. Mild central pulmonary venous congestion. Signed by: Dr. Efraín Yoder M.D. on 10/27/2018 6:38 PM
[2018-10-27 18:51] LABS: BASOPHILS % 0.1 % (0.0-1.0); HEMATOCRIT 28.3 % (38.2-49.6); HEMOGLOBIN 7.8 g/dL (14.0-18.0); LYMPHOCYTES # (AUTO) 0.6 (1.0-3.2); LYMPHOCYTES % 5.9 % (18.0-39.1); MEAN CORPUSCULAR HEMOGLOBIN 24.7 pg (28-32); MEAN CORPUSCULAR HGB CONC 27.6 g/dL (31-35); MEAN CORPUSCULAR VOLUME 89.6 fL (81-99); MONOCYTES # (AUTO) 0.3 (0.2-0.8); MONOCYTES % 3.3 % (4.4-11.3); NEUTROPHILS # (AUTO) 9.4 (2.1-6.9); NEUTROPHILS % 89.9 % (38.7-80.0); PLATELET COUNT 340 x10e3/uL (140-360); RED BLOOD COUNT 3.16 x10e6/uL (4.3-5.7)
[2018-10-27 19:07] LABS: INR 0.86; PROTHROMBIN TIME 12.5 seconds (11.9-14.5)
[2018-10-27 19:14] LABS: ANION GAP 15.9 mmol/L (8-16); CALCIUM 8.7 mg/dL (8.4-10.2); CREATININE, SERUM 1.74 mg/dL (0.72-1.25); POTASSIUM 4.9 mmol/L (3.5-5.1)
[2018-10-27] MEDS ORDERED: SODIUM CHLORIDE FLUSH 10 ML SYR INJ PRN (19:15)
[2018-10-27] MEDS ORDERED: FUROSEMIDE INJ 10 MG/ML 4 ML VIAL IV PRN (19:45)
[2018-10-27] MEDS: PIPERACILLIN/TAZO 2.25 GM 50 ML IV SCH (20:00)
--- OUTSIDE RECORDS SUMMARY | 2018-10-27 20:35 | XMS REPORT | Clinical Summary ---
Author Author [employer] Organization [employer] Address Unknown Phone Unavailable Care Team Providers Care Accounts Payables Clerk Name Role Phone Whitney You MD PCP [...] 12/12/2017 Office Visit Internal Medicine Sara Silva CT 11/14/2017 Telephone Internal Medicine after 10/26/2017 Immunizations [...] Taken Vital Sign Reading 10/25/2018 11:45 AM INSURANCE FOLLOW UP REP Blood Pressure 144/71 10/25/2018 11:45 AM INSURANCE FOLLOW UP REP Pulse 77 10/25/2018 11:45 AM INSURANCE FOLLOW UP REP Temperature 36.9 C (98.5 F) 12/12/2017 11:44 AM INSURANCE FOLLOW UP REP Respiratory Rate 20 10/25/2018 11:45 AM INSURANCE FOLLOW UP REP Oxygen Saturation 92% - Inhaled Oxygen - Concentration 07/13/2018 9:58 AM CDT Weight 89.4 kg (197 lb) 10/25/2018 11:45 AM INSURANCE FOLLOW UP REP Height 177.8 cm (5' 10") 07/13/2018 9:58 AM CDT Body Mass Index 28.27 Plan of Treatment Care Team Description Date Type Specialty Whitney You MD [address] [facility] [address] [facility] [place] [address] 02/07/2019 Office Visit Internal Medicine Health Maintenance Due Date Last Done Comments SHINGLES VACCINES (1 of 1990 2) PNEUMOCOCCAL 2005 POLYSACCHARIDE VACCINE AGE 65 AND OVER PNEUMOCOCCAL-13 2005 INFLUENZA VACCINE 06/13/2018 Procedures Comments Procedure Name Priority Date/Time Associated Diagnosis COMPREHENSIVE METABOLIC Routine 10/25/2018 CRI (chronic renal PANEL 12:27 PM INSURANCE FOLLOW UP REP insufficiency), stage 4 (severe) (HCC) Essential hypertension CBC WITH PLATELET AND Routine 10/25/2018 Anemia, normocytic DIFFERENTIAL 12:27 PM INSURANCE FOLLOW UP REP normochromic CBC WITH PLATELET AND Routine 07/13/2018 [...] PANEL Routine 12/27/2017 Renal insufficiency 1:59 PM INSURANCE FOLLOW UP REP CBC WITH PLATELET AND Routine 12/27/2017 Anemia, normocytic DIFFERENTIAL 1:59 PM INSURANCE FOLLOW UP REP normochromic IRON, TIBC AND FERRITIN Routine 12/12/2017 PANEL 12:35 PM INSURANCE FOLLOW UP REP MANUAL DIFFERENTIAL Routine 12/12/2017 12:35 PM INSURANCE FOLLOW UP REP COMPREHENSIVE METABOLIC Routine 12/12/2017 Pedal edema PANEL 12:35 PM INSURANCE FOLLOW UP REP Essential hypertension B NATRIURETIC PEPTIDE Routine 12/12/2017 Shortness of breath 12:35 PM INSURANCE FOLLOW UP REP CBC WITH PLATELET AND Routine 12/12/2017 Left leg cellulitis DIFFERENTIAL 12:35 PM INSURANCE FOLLOW UP REP Shortness of breath after 10/26/2017 Results * CBC with platelet and differential (10/25/2018 12:27 PM INSURANCE FOLLOW UP REP) Only the most recent of 6 results within the time period is included. WBC 8.3 3.8 - 10.8 Thousand/uL [facility] [place] RBC 3.03 (L) 4.20 - 5.80 Million/uL [facility] [place] HGB 7.5 (L) 13.2 - 17.1 g/dL [facility] [place] HCT 25.3 (L) 38.5 - 50.0 % [facility] [place] MCV 83.5 80.0 - 100.0 fL [facility] [place] MCH 24.8 (L) 27.0 - 33.0 pg [facility] [place] MCHC 29.6 (L) 32.0 - 36.0 g/dL [facility] [place] RDW 14.4 11.0 - 15.0 % [facility] [place] Platelet count 340 140 - 400 Thousand/uL [facility] [place] MPV 10.3 7.5 - 12.5 fL [facility] [place] Neutrophils, absolute 7,146 1,500 - 7,800 cells/uL [facility] [place] Lymphocytes, absolute 905 850 - 3,900 cells/uL [facility] [place] Monocytes, absolute 224 200 - 950 cells/uL [facility] [place] Eosinophils, absolute 8 (L) 15 - 500 cells/uL [facility] [place] Basophils, absolute 17 0 - 200 cells/uL [facility] Neutrophils 86.1 % [facility] Lymphocytes 10.9 % [facility] Monocytes 2.7 % [facility] Eosinophils 0.1 % [facility] Basophils + RC 0.2 % [facility] Specimen Blood Resulting Agency Comment Performing Organization Information: Site ID: [id number] Name: [facility] Address: [address] [place] [phone] Director: Marilu Snider Performing Organization Address City/State/Zipcode Phone Number [facility]ASH[facility] [place] [address] [place] [address] * Comprehensive metabolic panel (10/25/2018 12:27 PM INSURANCE FOLLOW UP REP) Only the most recent of 2 results within the time period is included. Glucose 126 (H) 65 - 99 mg/dL [facility] Comment: [place] Fasting reference interval For someone without known diabetes, a glucose value >125 mg/dL indicates that they may have diabetes and this should be confirmed with a follow-up test. BUN, whole blood 43 (H) 7 - 25 mg/dL [facility] Creatinine 1.81 (H) 0.70 - 1.18 mg/dL [facility] Comment: [place] For patients >49 years of age, the reference limit for Creatinine is approximately 13% higher for people identified as -Armenian. EGFR Non-Afr. Armenian 35 (L) > OR=60 mL/min/1.73m2 [email or web address] [facility] EGFR 41 (L) > OR=60 mL/min/1.73m2 [email or web address] [facility] BUN/creatinine ratio 24 (H) 6 - 22 (calc) [facility] [place] Sodium 142 135 - 146 mmol/L [facility] [place] Potassium 5.0 3.5 - 5.3 mmol/L [facility] [place] Chloride 101 98 - 110 mmol/L [facility] [place] CO2 34 (H) 20 - 32 mmol/L [facility] [place] Calcium 8.7 8.6 - 10.3 mg/dL [facility] [place] Protein 5.9 (L) 6.1 - 8.1 g/dL [facility] [place] Albumin, S 3.8 3.6 - 5.1 g/dL [facility] [place] Globulin, total 2.1 1.9 - 3.7 g/dL (calc) [facility] [place] Albumin/globulin ratio 1.8 1.0 - 2.5 (calc) [facility] Total bilirubin 0.2 0.2 - 1.2 mg/dL [facility] Alkaline phosphatase 67 40 - 115 U/L [facility] AST 14 10 - 35 U/L [facility] [place] ALT 12 9 - 46 U/L [facility] [place] Specimen Blood Resulting Agency Comment Performing Organization Information: Site ID: A Name: [facility] Address: [address] [place] [phone] Director: Marilu Snider Performing Organization Address City/State/Zipcode Phone Number [facility] [address] [place] [phone] * Basic metabolic panel (07/13/2018 10:36 AM CDT) Only the most recent of 4 results within the time period is included. Glucose 115 (H) 65 - 99 mg/dL [facility] Comment: [place] Fasting reference interval For someone without known diabetes, a glucose value between 100 and 125 mg/dL is consistent with prediabetes and should be confirmed with a follow-up test. BUN, whole blood 35 (H) 7 - 25 mg/dL [facility] Creatinine 1.46 (H) 0.70 - 1.18 mg/dL [facility] Comment: [place] For patients >49 years of age, the reference limit for Creatinine is approximately 13% higher for people identified as -Armenian. EGFR Non-Afr. Armenian 46 (L) > OR=60 mL/min/1.73m2 [facility] EGFR 53 (L) > OR=60 mL/min/1.73m2 [facility] BUN/creatinine ratio 24 (H) 6 - 22 (calc) [facility] Sodium 142 135 - 146 mmol/L [facility] [place] Potassium 5.0 3.5 - 5.3 mmol/L [facility] [place] Chloride 98 98 - 110 mmol/L [facility] [place] CO2 37 (H) 20 - 32 mmol/L [facility] [place] Calcium 9.4 8.6 - 10.3 mg/dL [facility] [employer] [place] Specimen Blood Resulting Agency Comment Performing Organization Information: Site ID: [id number] Name: [facility] Address: [address] [place] [phone] Director: Marilu Snider Performing Organization Address City/State/[facility] Cent[facility] Phone Number [facility] [place] [address] [place] [phone] * IRON, TIBC AND FERRITIN PANEL (12/12/2017 12:35 PM INSURANCE FOLLOW UP REP) Iron level 54 50 - 180 mcg/dL [facility] Iron binding capacity 279 250 - 425 mcg/dL (calc) [facility] [place] Iron saturation 19 15 - 60 % (calc) [facility] [place] Ferritin level 66 20 - 380 ng/mL [facility] [place] Narrative Performed At FASTING:NO [facility] FASTING: NO Resulting Agency Comment Performing Organization Information: Site ID: [id number] Name: [facility] Address: [address] [place] [phone] Director: Marilu Snider MD Performing Organization Address [facility] [place] [facility] Centercomt Phone Number [facility] [place] [address] [place] [phone] * Manual differential (12/12/2017 12:35 PM INSURANCE FOLLOW UP REP) Neutrophils, absolute 7,673 1,500 - 7,800 cells/uL [facility] [place] Bands absolute 865 (H) 0 - 750 cells/uL [facility] [place] Metamyelocytes absolute 93 (H) 0 cells/uL [facility] [place] Myelocytes absolute count 93 (H) 0 cells/uL [facility] [place] Promyelocytes absolute 195 (H) 0 cells/uL [facility] Lymphocytes, absolute 186 (L) 850 - 3,900 cells/uL [facility] [place] Monocytes, absolute 195 (L) 200 - 950 cells/uL [facility] [place] Eosinophils, absolute 0 (L) 15 - 500 cells/uL [facility] [place] Basophils, absolute 0 0 - 200 cells/uL [facility] [place] Neutrophils 82.5 % [facility] [place] Band neutrophils 9.3 % [facility] [place] Metamyelocytes 1.0 (H) % [facility] [place] Myelocytes 1.0 (H) % [facility] [place] Promyelocytes 2.1 (H) % [facility] [place] Lymphocytes 2.0 % [facility] [place] Monocytes 2.1 % [facility] [place] Eosinophils 0 % [facility] [place] Basophils + RC 0 % [facility] [place] Note: Comment: [facility] Although an "automated CBC" [place] was ordered, our instrumentation detected an abnormality on your patient's specimen requiring us to perform a manual review. Narrative Performed At FASTING:NO [facility] FASTING: NO Resulting Agency Comment Performing Organization Information: Site ID: RGA Name: [facility] Address: [address] [place] [phone] Director: Marilu Snider MD Performing Organization Address City/[facility] [place] [facility] Centercode Phone Number [facility] [place] [address] [place] [address] * B natriuretic peptide (12/12/2017 12:35 PM INSURANCE FOLLOW UP REP) BNP 238 (H) <100 pg/mL [facility] Comment: [place] BNP levels increase with age in the general population with the highest values seen in individuals greater than 75 years of age. Reference: J. Am. Audie. Cardiol. 2002; 40:976-982. Specimen Blood Narrative Performed At FASTING:NO [facility] FASTING: NO Resulting Agency Comment Performing Organization Information: Site ID: RGA Name: [facility] Address: [address] [place] [phone] Director: Marilu Snider MD Performing Organization Address [facility] [place] [facility] Centercode Phone Number [facility] [address] [address] after 10/26/2017 Insurance Payer Benefit Subscriber ID Type Phone Address Plan / Group MEDICARE MEDICARE xxxxxxxxxxx Medicare [place], [place] PART A AND B AARP AARP xxxxxxxxxxx Commercial SUPPLEMENT Advance Directives Patient has advance care planning documents on file. For more information, janneth bush contact: Saul Arango [address] [place] [address]
--- OUTSIDE RECORDS SUMMARY | 2018-10-27 20:35 | XMS REPORT | Clinical Summary ---
Author Author [facility] Address Unknown Phone Unavailable Care Team Providers Care Indirect Fire Infantryman Name Role Phone Whitney You MD PCP [...] is included. Narrative Performed At FINAL REPORT [employer] [facility] HISTORY: lung nodule COMPARISON : PET/CT [...] MD Report Verified Date/Time:05/21/2018 17:06:47 Reading Location: [address] Radiology Reading Room Procedure Note Interface, [...] Report Verified Date/Time: 05/21/2018 17:06:47 Reading Location: [address] Radiology Reading Room Performing Organization Address City/State/Zipcode Phone Number [employer] * POC-Creatinine (05/21/2018 11:15 AM CDT) Only the most recent of 2 results within the time period is included. POC-Creatinine 1.5 (H)Comment: TESTED AT 0.6 - 1.3 mg/dL [facility] [address] [facility] [address] POC-EGFR 45 mL/min/1.73M2 [facility] Specimen Blood Narrative Performed At Performing Organization Address City/State/Zipcode Phone Number [facility] [address] [place] [address] MEDICAL CENTER * NM PET/CT Skull Base To MidThigh Initial (04/11/2018 4:05 PM CDT) Narrative Performed At FINAL REPORT [facility] EXAMINATION: FDG-PET/CT, 04/11/2018 1:38 PM CLINICAL HISTORY: [...] None Serum blood glucose: 104 CPT Code: 65346 FINDINGS: Head and Neck: There is no [...] None Serum blood glucose: 104 CPT Code: 78783 FINDINGS: Head and Neck: There is no [...] PM CDT) POC-Glucose Meter 104Comment: TESTED AT [facility] 70 - 110 mg/dL [address] Specimen Blood Performing Organization Address City/State/[place] [address] [facility] after 10/26/2017 Insurance Payer Benefit Subscriber ID Type Phone Address Plan / Group MEDICARE MEDICARE A xxxxxxxxxx Medicare B MCR SUPPLEMENT/INDIVIDUAL AARP/UNITE xxxxxxxxxxx Medigap D HEALTHCARE
--- NOTE | 2018-10-27 21:10 | Diagnostic Imaging Report ---
EXAM: CT Chest WITHOUT contrast INDICATION: R/O POST-OBSTRUCTIVE PNEUMONIA ^[id number] ^1953 ^Y COMPARISON: Same-day chest x-ray TECHNIQUE: Chest was scanned utilizing a multidetector helical scanner from the lung apex through the level of the adrenal glands without administration of IV contrast. Absence of intravenous contrast decreases sensitivity for detection of lymphadenopathy and vascular pathology. Coronal and sagittal reformations were obtained. Routine protocol was performed. IV CONTRAST: None COMPLICATIONS: None RADIATION DOSE: Total DLP: 638.3 mGy*cm Estimated effective dose: (DLP x 0.014 x size factor) mSv CTDIvol has been reviewed. It is below the limits set by the Radiation Protocol Committee (RPC). Dose modulation, iterative reconstruction, and/or weight based adjustment of the mA/kV was utilized to reduce the radiation dose to as low as reasonably achievable. FINDINGS: LINES/ TUBES: None. LUNGS AND AIRWAYS: Diffuse emphysematous changes with scattered areas of scarring, right greater than left. Sutures suggestive of right upper lobectomy. Previously noted right hilar mass on same-day chest x-ray corresponds to normal vascular structures. No masses identified. Airways are normal. PLEURA: The pleural spaces are clear. HEART AND MEDIASTINUM: Right thyroid lobe 1.1 cm nodule. No mediastinal, hilar or axillary lymphadenopathy. Ascending aortic ectasia measuring 4.5 cm at the sinus of Valsalva. Hypoattenuation in the blood pool suggesting anemia. Three-vessel coronary artery calcifications. Main pulmonary artery enlarged measuring 3.6 cm suggestive of portal hypertension. The heart is normal in size.. There is no pericardial effusion. UPPER ABDOMEN: Right hepatic 0.9 cm cyst. Left superior pole 1.5 cm cyst. 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 Diffuse atherosclerotic calcifications. BONES: Postsurgical changes in the right ribs. Age-indeterminate compression deformity of T12. Scattered multilevel degenerative changes of the spine. SOFT TISSUES: Unremarkable. IMPRESSION: 1. No acute abnormalities in the chest. 2. Right upper lobectomy changes. No masses identified. Previously noted right hilar mass on same-day chest x-ray corresponds to vascular structures. 3. Diffuse emphysematous changes. 4. Enlarged pulmonary artery suggestive of pulmonary hypertension. 5. Ascending aortic ectasia and juxtarenal abdominal aortic aneurysm. Signed by: DR. Alex Lamb MD on 10/27/2018 9:07 PM
[2018-10-27] MEDS: IPRATROPIUM BROMIDE 0.02% 2.5 ML NEB NEB SCH (21:30)
[2018-10-27] MEDS: ALBUTEROL SULF 0.083% NEB SOLN 3 ML NEB NEB SCH ×2 (21:30→23:00)
[2018-10-27 21:57] VITALS: BP 151/70
[2018-10-27] MEDS ORDERED: SODIUM CHLORIDE 0.9% 250ML 250 ML ONE (23:21)
[2018-10-28] VITALS: BP 138/64
[2018-10-28] MEDS: IPRATROPIUM BROMIDE 0.02% 2.5 ML NEB NEB SCH ×2 (01:00→07:00)
[2018-10-28] MEDS: ALBUTEROL SULF 0.083% NEB SOLN 3 ML NEB NEB SCH ×2 (03:00→07:00)
[2018-10-28] MEDS ORDERED: FUROSEMIDE INJ 10 MG/ML 4 ML VIAL IV PRN (03:00)
[2018-10-28] MEDS ORDERED: SODIUM CHLORIDE 0.9% 50ML 50 ML ONE (03:15)
[2018-10-28] MEDS: PIPERACILLIN/TAZO 2.25 GM 50 ML IV SCH (03:32)
[2018-10-28] MEDS ORDERED: SODIUM CHLORIDE 0.9% 250ML 250 ML ONE (04:12)
[2018-10-28 04:46] VITALS: BP 128/69
[2018-10-28 07:36] VITALS: BP 135/63
[2018-10-28 08:10] VITALS: BP 135/63
[2018-10-28] MEDS ORDERED: NON-FORMULARY MEDICATION (Simvastatin 10 MG) PO SCH (09:00)
[2018-10-28] MEDS ORDERED: SIMVASTATIN 20 MG TAB PO SCH (09:00)
[2018-10-28] MEDS ORDERED: AMIODARONE HCL 200 MG TAB PO SCH (09:00)
[2018-10-28] MEDS ORDERED: METOPROLOL TARTRATE 50 MG TAB PO SCH (09:00)
[2018-10-28] MEDS ORDERED: TIOTROPIUM 18 MCG INH POWDER INH SCH (09:00)
[2018-10-28] MEDS ORDERED: PANTOPRAZOLE SOD 40 MG TABEC PO SCH (09:00)
[2018-10-28 09:22] LABS: BASOPHILS % 0.2 % (0.0-1.0); EOSINOPHILS # (AUTO) 0.1 (0.0-0.4); EOSINOPHILS % 0.9 % (0.0-6.0); HEMATOCRIT 31.6 % (38.2-49.6); HEMOGLOBIN 9.2 g/dL (14.0-18.0); LYMPHOCYTES % 9.1 % (18.0-39.1); MEAN CORPUSCULAR HEMOGLOBIN 25.7 pg (28-32); MEAN CORPUSCULAR HGB CONC 29.1 g/dL (31-35); MEAN CORPUSCULAR VOLUME 88.3 fL (81-99); MONOCYTES % 8.8 % (4.4-11.3); NEUTROPHILS # (AUTO) 9.1 (2.1-6.9); NEUTROPHILS % 80.3 % (38.7-80.0); PLATELET COUNT 265 x10e3/uL (140-360); RED BLOOD COUNT 3.58 x10e6/uL (4.3-5.7); RED CELL DISTRIBUTION WIDTH 15.4 % (11.7-14.4)
[2018-10-28 10:05] LABS: CALCIUM 8.7 mg/dL (8.4-10.2); CREATININE, SERUM 1.7 mg/dL (0.72-1.25)
--- NOTE | 2018-10-28 10:20 | History and Physical ---
PRIMARY CARE PHYSICIAN: Dr. Arriola. CHIEF COMPLAINT: Abnormal blood counts. HISTORY OF PRESENT ILLNESS: This is a 78-year-old man with a history of atrial fibrillation, on Eliquis and aspirin, now developing worsening blood counts, sent to the hospital with low hemoglobin for blood transfusion. Patient denies any chest pain or shortness of breath. Denies any symptoms. PAST MEDICAL HISTORY: Right lung cancer in 2010, status post partial lobectomy; TIA, hypertension, peripheral edema, congestive heart failure, type unknown, acute kidney injury/chronic kidney disease, stage 3/4, severe COPD on home oxygen, left foot chronic infection, cigarette use, and chronic ambulatory dysfunction, using walker. PAST SURGICAL HISTORY: Partial right lobectomy in 2010. ALLERGIES: PER ELECTRONIC MEDICAL RECORD. FAMILY AND SOCIAL HISTORY: Patient is . He has no children. No alcohol or illicits. He continues to smoke intermittently. MEDICATIONS: Per electronic medical record. REVIEW OF SYSTEMS: Denies any dizziness, chest pain, shortness of breath, fevers, chills, sweats, nausea, vomiting, diarrhea. PHYSICAL EXAMINATION VITAL SIGNS: Have been reviewed. GENERAL: A tired-appearing man, resting in bed. He has walker in place. HEENT: Anicteric. CARDIOVASCULAR: Normal S1, S2 LUNGS: He has reduced breath sounds throughout. ABDOMEN: Soft, nontender, nondistended. EXTREMITIES: His right thigh with Ramsey bandage. He had a left foot with bandage, clean and dry to his chronic ulcer site. He has trace edema bilateral lower extremities. SKIN: Dry. PSYCHIATRIC: Normal affect. NEUROLOGICAL: Intact. Moving all extremities. LABS: Reviewed. MEDICATIONS: Reviewed. ASSESSMENT: A 77-year-old man with 1. Moderate normocytic anemia. 2. Chronic kidney disease, stage 3/4. 3. Abdominal aortic aneurysm, 4.5 cm. 4. Chronic atrial fibrillation. 5. History of right lung cancer in 2010. PLAN 1. Blood transfusion now. 2. Check hemoglobin and hematocrit after blood transfusion. If it shows improvement, patient will be discharged home. 3. Patient will need to follow up with Dr. Schmidt [facility] for endoscopy. His colonoscopy was [address] Sanders, needs to follow up with him outpatient regularly. 4. Continue PPI while he is on anticoagulation. 5. Continue physical therapy at home. Job#: [id number] [employer]
[2018-10-28 11:19] VITALS: BP 126/56
[2018-10-28] MEDS ORDERED: FERROUS SULFAT325 MG PO (11:20)
== END 2018-10-28 12:57 | disposition home or self-care (01) ==
LOC: ER 17:04 → ERHOLD 19:08 → IMCU 20:55
PROVIDERS: ADMIT Internal Medicine; ATTEND Internal Medicine
DX: D64.9 Anemia, unspecified (principal); I48.2 Chronic atrial fibrillation; Z79.01 Long term (current) use of anticoagulants; Z79.82 Long term (current) use of aspirin; I13.0 Hypertensive heart and chronic kidney disease with heart failure and stage 1 through stage 4 chronic kidney disease, or unspecified chronic kidney disease; I50.9 Heart failure, unspecified; N18.4 Chronic kidney disease, stage 4 (severe); N17.9 Acute kidney failure, unspecified; J44.9 Chronic obstructive pulmonary disease, unspecified; Z99.81 Dependence on supplemental oxygen; F17.210 Nicotine dependence, cigarettes, uncomplicated; Z86.73 Personal history of transient ischemic attack (TIA), and cerebral infarction without residual deficits; Z85.118 Personal history of other malignant neoplasm of bronchus and lung; L97.529 Non-pressure chronic ulcer of other part of left foot with unspecified severity; R26.9 Unspecified abnormalities of gait and mobility
CPT/HCPCS: 36415 ×2; 36430; 71045; 71250; 80048 ×2; 82550; 82553; 84484; 85025 ×2; 85610; 85730; 86850; 86900; 86920; 87040; 94640; 99284; G0378 ×2; J1940; J2543 ×2; J7050 ×2; P9016 ×2; S0164